=== PATIENT | female | born 1955 | race Caucasian/White ===

== ENCOUNTER → 2020-01-09 09:50 | Outpatient (BNVA) | payer OTHER, SELFPAY | PROVIDERS: PCP Internal Medicine; Referring Provider Internal Medicine; Visit Provider Physician Assistant | DX: Z76.89 Persons encountering health services in other specified circumstances (principal) ==

== ENCOUNTER 2020-02-01 16:02 | Outpatient (REF) | payer MEDICARE, OTHER, SELFPAY ==
--- NOTE | 2020-02-01 | MM_ITS ---
EXAMINATION: MM SCREENING DIGITAL BREAST TOMOSYNTHESIS, BILATERAL CLINICAL INFORMATION: Screening. Asymptomatic. The lifetime risk of breast cancer based on the Tyrer-Cuzick Model is 5.7%. COMPARISON: Mammography: August 08, 2018 and studies dating back to February 29, 2012 TECHNIQUE: Digital breast tomosynthesis is performed in both the craniocaudal and mediolateral oblique views along with computer-aided detection (CAD). Synthesized 2D images are generated from the tomosynthesis. FINDINGS: The breasts are heterogeneously dense, which may obscure small masses (ACR BI-RADS breast composition Category c). There are no significant masses, abnormal calcifications, or other abnormalities. MM/MM tomosynthesis screening BI IMPRESSION: There are no significant changes from prior study. ASSESSMENT: BI-RADS 1: Negative RECOMMENDATION: Routine annual mammography screening. This patient's information was entered into a reminder system with a target due date for their next mammogram.
== END 2020-02-01 16:03 | disposition home or self-care (01) ==
LOC: HO.MAMMO 16:02
PROVIDERS: Visit Provider Internal Medicine
DX: Z12.31 Encounter for screening mammogram for malignant neoplasm of breast (principal)
CPT/HCPCS: 77063; 77067

== ENCOUNTER 2020-03-04 09:11 | Day surgery (SDC) | payer MEDICARE, OTHER, SELFPAY ==
[2020-02-28 11:25] VITALS: BMI 29.2
--- NOTE | 2020-03-01 09:11 | P.CONAN_ITS ---
Documented by User: Ebony Luna 03/01/20 09:13 HPI - Anesthesia Eval Consult details Narrative: 64yo F for Colonoscopy FOR[facility]LY [facility] Past Medical History Medical History Encounter for screening colonoscopy HTN (hypertension) Family History Family History Father Hypertension Mother Hypertension Surgical History Surgical History History of esophagogastroduodenoscopy (EGD) Hx of colonoscopy Hx of hemorrhoidectomy Social History Social History Household Members: Spouse Housing: House Alcohol intake: current Alcohol intake frequency: holidays/special occasions only Alcohol type: wine Smoking Status: Former smoker Use of substances other than those prescribed or required for medical reasons: No Advance Directives: Yes Advance Directives Information Provided: No Advance Directives on File: No Advance Directives Date on File: 03/04/20 Recently lost weight without trying: No service: No Current occupational status: retired Current occupation: [employer] Meds Allergies Allergy/AdvReac Type Severity Reaction Status Date / Time No Known Allergies Allergy Verified 01/09/20 12:22 Home Medications Medication Instructions Recorded Confirmed Type metoprolol succinate 25 mg 25 mg PO DAILY 01/09/20 02/28/20 History tablet,extended release 24 hr Exam Exam Date and Time: March 01, 2020 0911 Height,Weight and Vital Signs: Height 5 ft 2 in Weight 72.575 kg Pertinent Lab Results Pertinent Lab Results: Laboratory Tests 09/28/19 09/28/19 08:21 08:21 WBC 4.0 L Hgb 12.7 Hct 38.4 Plt Count 184 Sodium 139 Potassium 3.9 Chloride 103 BUN 18 H Creatinine 0.78 Assessment and Plan Assessment Anesthesia Assessment: Chart Reviewed Documented by User: Shawnee Turpin 03/04/20 10:12 [facility] Past Medical History Medical History Encounter for screening colonoscopy HTN (hypertension) Family History Family History Father Hypertension Mother Hypertension Family history of problems with anesthesia: No Surgical History Surgical History History of esophagogastroduodenoscopy (EGD) Hx of colonoscopy Hx of hemorrhoidectomy History of Problems with Anesthesia: No Social History Social History Household Members: Spouse Housing: House Alcohol intake: current Alcohol intake frequency: holidays/special occasions only Alcohol type: wine Smoking Status: Former smoker Use of substances other than those prescribed or required for medical reasons: No Advance Directives: Yes Advance Directives Information Provided: No Advance Directives on File: No Advance Directives Date on File: 03/04/20 Recently lost weight without trying: No service: No Current occupational status: retired Current occupation: [employer] Meds Allergies Allergy/AdvReac Type Severity Reaction Status Date / Time No Known Allergies Allergy Verified 01/09/20 12:22 Home Medications Medication Instructions Recorded Confirmed Type metoprolol succinate 25 mg 25 mg PO DAILY 01/09/20 02/28/20 History tablet,extended release 24 hr Exam Height,Weight and Vital Signs: Vital Signs Temp Pulse Resp BP Pulse Ox 03/04/20 09:49 97.2 F 70 18 175/86 H 98 Airway Mallampati Class: I TM Dist: >3cm Neck ROM: Full Heart: RRR Lungs: CTAB Assessment and Plan Assessment Anesthesia Assessment: Anesthesia Plan Discussed and Chart Reviewed Final Anesthetic Review NPO: Yes ASA Class: II Final Preanesthetic Review: No Changes in Pt Med Stat, Meds/Allgs Chart Reviewed, Consent Obtained/Reviewed and Anes Risks/Benef Reviewed Patient Risk: Low Procedure Risk: Low Assessment/Block/Sedation in SS: Assess/Block/Sedation-SS Anesthetic Plan Anesthetic Plan: MAC: Disposition: Standard PACU
[2020-03-04 09:49] VITALS: BP 175/86; PULSE 70; RESP 18; TEMP 36.2; O2SAT 98; BMI 29.0
--- NOTE | 2020-03-04 10:25 | W.PM.OPN ---
Operative Note Operative Note Date of Service: 03/04/20 Narrative: Pre-op diagnosis: Colon cancer screening Post-op diagnosis: other (colon polyps, diverticulosis, hemorrhoids) Procedure: COLONOSCOPY TILL CECUM WITH BIOPSIES Consent: Indications for the procedure and potential complications of bleeding, perforation, reaction to medications and missed diagnosis were discussed with the patient and informed consent was obtained. Instrument: Olympus PCF H 190 L variable stiffness pediatric colonoscope Monitoring: Vital signs and clinical assessment, intermittent blood pressure monitoring, continuous EKG monitoring, Pulse oximetry and Carbon Dioxide monitoring were done throughout the procedure. Colon withdrawl time was 17 minutes. Procedure: The patient was placed in the left lateral decubitis position and pre-procedure medications were administered. After a digital rectal examination of the ano-rectum, the video colonoscope was inserted into the rectum and advanced through the colon to the cecum. The colonoscope was slowly withdrawn in a retrograde panoramic fashion and the colon mucosa was carefully examined including a retroflexed view of the rectum. Findings and interventions are described below. Procedure Difficulty: LLQ pressure applied to intubate the cecum Findings: Terminal Ileum: Not evaluated Cecum: Normal Ascending Colon: Normal Transverse Colon: Two 2-4 mm diminutive appearing polyps removed with a cold biopsy. Descending Colon: Normal Sigmoid Colon: Moderate diverticulosis Rectum: A 4-5 mm sessile polyp removed with a cold bx Ano-rectum: Moderate internal hemorrhoids Colon preparation: Excellent Impression and Post Procedure Diagnosis: Colonoscopy Findings: Three small polyps removed Moderate diverticulosis seen in the sigmoid colon Moderate hemorrhoids on retroflexed exam. Plan: Await pathology results Patient has an appointment on 03/18/20 in the GI Clinic with HARRY Ramesh. Repeat Colonoscopy interval based on path results - in 3-5 years if polyps are adenomatous and 10 years if polyps are hyperplastic. Above findings were reviewed with the patient and colon polyps and diverticulosis handouts were given in the discharge area Surgeon: Sosa Ordonez MD Anesthesia: MAC (VLADIMIR Rivera) Estimated blood loss (mL): 0 Pathology: other (A. TC polyps x 2, B. rectal polyp x 1) Condition: stable Disposition: PACU
--- NOTE | 2020-03-04 10:25 | MHC.SHP ---
Pre-Procedural Eval Section A The patient is an INPATIENT: No The History & Physical has been completed within 30 days and I have reviewed it.: No Section B Chief Complaint: Screening Details of Present Illness: a 64-year-old female referred for screening colonoscopy. Previous colonoscopy for normal by Dr.Wiess- kilgore in 2008. she was scheduled colonoscopy in August which she had canceled during the pandemic. past history of hemorrhoidectomy. she otherwise has no GI complaints. She has a good appetite. She has a normal bowel pattern Relevant Social History: Tobacco Use (past smoker) Present Medications: see Short Stay Collaborative assessment Medical History: Significant History (hypertension) History of Previous Operations: Relevant previous surgery/procedure and date(s) (colonoscopy in 2008) Allergies: Allergies Allergy/AdvReac Type Severity Reaction Status Date / Time No Known Allergies Allergy Verified 01/09/20 12:22 Review of Systems Sugical H&P ROS: Negative: Constitution, Cardiovascular, Respiratory and Gastrointestinal Exam Surgical H&P Exam: Normal: Heart, Normal: Lungs, Normal: Extremities and Normal: Abdomen Plan Diagnosis/Plan: Unchanged Patient has been examined and remains a candidate for the planned procedure
[2020-03-04] MEDS: Lactated Ringers 1,000 ML 100 ML IVCONT (10:26)
[2020-03-04 11:15] VITALS: BP 104/63; PULSE 60; RESP 15; TEMP 36.6; O2SAT 94
[2020-03-04 11:30] VITALS: BP 105/63; PULSE 63; RESP 16; O2SAT 96
[2020-03-04 11:45] VITALS: BP 112/73; PULSE 56; RESP 16; TEMP 36.6; O2SAT 96
--- NOTE | 2020-03-04 13:51 | HO.POSTANES ---
Post Anesthesia Evaluation Post Anesthesia Evaluation Vital Signs: Vital Signs Temp Pulse Resp BP Pulse Ox 03/04/20 11:45 97.8 F 56 16 112/73 96 03/04/20 11:30 63 16 105/63 96 03/04/20 11:15 97.8 F 60 15 104/63 94 03/04/20 09:49 97.2 F 70 18 175/86 H 98 Anesthesia: Monitored Mental Status: Awake Pain Control: Satisfactory Nausea/Vomiting: None Hydration: Adequate Anesthesia-Related Issues: No Anes. Related Issues
== END 2020-03-04 12:15 | disposition home or self-care (01) ==
PROVIDERS: PCP Internal Medicine; Visit Provider Internal Medicine Gastroenterology
PROC: 0DJD8ZZ Inspection of Lower Intestinal Tract, Via Natural or Artificial Opening Endoscopic (ICD-10-PCS; CPT 45378; principal; 2020-03-04 10:30)
DX: Z12.11 Encounter for screening for malignant neoplasm of colon (principal); D12.3 Benign neoplasm of transverse colon; K62.1 Rectal polyp; K57.30 Diverticulosis of large intestine without perforation or abscess without bleeding; K64.8 Other hemorrhoids
CPT/HCPCS: 45380; 88305

== ENCOUNTER → 2020-03-28 11:29 | Outpatient (BNVA) | payer MEDICARE, OTHER, SELFPAY | PROVIDERS: PCP Internal Medicine; Visit Provider Physician Assistant | DX: Z13.89 Encounter for screening for other disorder (principal) | CPT/HCPCS: 99212 ==

== ENCOUNTER 2020-04-03 07:59 | Outpatient (REF) | payer MEDICARE, OTHER, SELFPAY ==
[2020-04-03 11:55] LABS: Cholesterol 231 mg/dL; HDL Cholesterol 70 mg/dL; LDL Cholesterol Calculated 140 mg/dl; Triglycerides 109 mg/dL
[2020-04-03 12:17] LABS: Vitamin D 25-OH Total 36.7 ng/mL (>30)
== END 2020-04-03 08:00 | disposition home or self-care (01) ==
LOC: HO.HMGCLDS 07:59
PROVIDERS: PCP Internal Medicine; Visit Provider Internal Medicine
DX: I10 Essential (primary) hypertension (principal); E78.5 Hyperlipidemia, unspecified; E55.9 Vitamin D deficiency, unspecified
CPT/HCPCS: 36415; 80061; 82306

== ENCOUNTER 2020-10-14 08:45 | Outpatient (REF) | payer MEDICARE, OTHER, SELFPAY ==
[2020-10-14 11:49] LABS: Alanine Aminotransferase 16 U/L (0-31); Albumin Level 4.2 g/dL (3.5-5.0); Alkaline Phosphatase 63 U/L (39-117); Anion Gap 10 (12-20); Aspartate Amino Transferase 24 U/L (5-31); Bilirubin Total 0.7 mg/dL (0.0-1.0); Blood Urea Nitrogen 13 mg/dL (9-16); Calcium 9.4 mg/dL (8.4-10.2); Carbon Dioxide 27 mmol/L (22-29); Chloride 107 mmol/L (96-108); Cholesterol 207 mg/dL; Estimated Glomerular Filt Rate > 60; Glucose Fasting 91 mg/dL (60-99); HDL Cholesterol 64 mg/dL; LDL Cholesterol Calculated 121 mg/dl; Potassium 3.8 mmol/L (3.3-5.1); Sodium 140 mmol/L (135-145); Total Protein 6.4 g/dL (6.5-8.0); Triglycerides 111 mg/dL
[2020-10-14 12:11] LABS: TSH reflex Free T4 1.73 uIU/mL (0.32-4.0)
== END 2020-10-14 08:46 | disposition home or self-care (01) ==
LOC: HO.HMGCLDS 08:45
PROVIDERS: PCP Internal Medicine; Visit Provider Internal Medicine
DX: E78.5 Hyperlipidemia, unspecified (principal); I10 Essential (primary) hypertension
CPT/HCPCS: 36415; 80053; 80061; 82306; 84443

== ENCOUNTER 2021-02-04 11:56 | Outpatient (REF) | payer MEDICARE, OTHER, SELFPAY ==
--- NOTE | ~2021-02-04 | MM_ITS ---
EXAMINATION: MM SCREENING DIGITAL BREAST TOMOSYNTHESIS, BILATERAL CLINICAL INFORMATION: Screening. Asymptomatic. The lifetime risk of breast cancer based on the Tyrer-Cuzick Model is 5%. COMPARISON: Mammography: 02/01/2020, 08/08/2018, 07/20/2017 TECHNIQUE: Digital breast tomosynthesis is performed in both the craniocaudal and mediolateral oblique views along with computer-aided detection (CAD). Synthesized 2D images are generated from the tomosynthesis. FINDINGS: The breasts are heterogeneously dense, which may obscure small masses (ACR BI-RADS breast composition Category c). There are no significant masses, abnormal calcifications, or other abnormalities. Breast tissue composition borders on average fibroglandular. Parenchymal pattern similar to prior studies. MM/MM tomosynthesis screening BI IMPRESSION: No mammographic evidence of malignancy. ASSESSMENT: BI-RADS 1: Negative RECOMMENDATION: Routine annual mammography screening. This patient's information was entered into a reminder system with a target due date for their next mammogram.
== END 2021-02-04 11:57 | disposition home or self-care (01) ==
LOC: HO.MAMMO 11:56
PROVIDERS: PCP Internal Medicine; Visit Provider Internal Medicine
DX: Z12.31 Encounter for screening mammogram for malignant neoplasm of breast (principal)
CPT/HCPCS: 77063; 77067

== ENCOUNTER 2021-04-29 08:46 | Outpatient (REF) | payer MEDICARE, OTHER, SELFPAY ==
[2021-04-29 11:41] LABS: Hematocrit 39.5 % (37.0-47.0); Hemoglobin 13.3 g/dl (12.0-16.0); Mean Corpuscular HGB Conc 33.7 g/dl (31.0-35.0); Mean Corpuscular Volume 89.2 fL (80.0-98.0); Mean Platelet Volume 10.9 fL (9.4-12.3); Platelet Count 185 X10*3/uL (160-400); Red Blood Count 4.43 X10*6/uL (4.20-5.50); Red Cell Distribution Width 11.7 % (11.0-16.0); White Blood Count 4.3 X10*3/uL (4.8-10.8)
[2021-04-29 12:08] LABS: Vitamin D 25-OH Total 39.7 ng/mL (>30)
[2021-04-29 12:09] LABS: Alanine Aminotransferase 13 U/L (0-31); Albumin Level 4.5 g/dL (3.5-5.0); Alkaline Phosphatase 67 U/L (39-117); Anion Gap 11 (12-20); Aspartate Amino Transferase 22 U/L (5-31); Bilirubin Total 0.7 mg/dL (0.0-1.0); Blood Urea Nitrogen 17 mg/dL (9-16); Calcium 9.7 mg/dL (8.4-10.2); Carbon Dioxide 29 mmol/L (22-29); Chloride 105 mmol/L (96-108); Cholesterol 246 mg/dL; Estimated Glomerular Filt Rate > 60; Glucose Fasting 91 mg/dL (60-99); HDL Cholesterol 74 mg/dL; LDL Cholesterol Calculated 157 mg/dl; Potassium 4.9 mmol/L (3.3-5.1); Sodium 140 mmol/L (135-145); Total Protein 6.9 g/dL (6.5-8.0); Triglycerides 79 mg/dL
== END 2021-04-29 08:47 | disposition home or self-care (01) ==
LOC: HO.HMGCLDS 08:46
PROVIDERS: Visit Provider Internal Medicine
DX: E78.5 Hyperlipidemia, unspecified (principal); I10 Essential (primary) hypertension
CPT/HCPCS: 36415; 80053; 80061; 82306; 85027

== ENCOUNTER 2021-10-28 07:38 | Outpatient (REF) | payer MEDICARE, OTHER, SELFPAY ==
[2021-10-28 11:50] LABS: Cholesterol 236 mg/dL; HDL Cholesterol 68 mg/dL; LDL Cholesterol Calculated 152 mg/dl; Triglycerides 83 mg/dL
== END 2021-10-28 07:39 | disposition home or self-care (01) ==
LOC: HO.HMGCLDS 07:38
PROVIDERS: PCP Internal Medicine; Visit Provider Internal Medicine
DX: I10 Essential (primary) hypertension (principal); E78.5 Hyperlipidemia, unspecified
CPT/HCPCS: 36415; 80061

== ENCOUNTER 2022-01-06 07:49 | Outpatient (REF) | payer MEDICARE, OTHER, SELFPAY ==
[2022-01-06 12:02] LABS: Alanine Aminotransferase 13 U/L (0-31); Albumin Level 4.3 g/dL (3.5-5.0); Alkaline Phosphatase 59 U/L (39-117); Anion Gap 15 (12-20); Aspartate Amino Transferase 21 U/L (5-31); Bilirubin Total 0.7 mg/dL (0.0-1.0); Blood Urea Nitrogen 14 mg/dL (9-16); Calcium 9.1 mg/dL (8.4-10.2); Carbon Dioxide 27 mmol/L (22-29); Chloride 103 mmol/L (96-108); Cholesterol 184 mg/dL; Estimated Glomerular Filt Rate > 60; Glucose Fasting 86 mg/dL (60-99); HDL Cholesterol 58 mg/dL; LDL Cholesterol Calculated 110 mg/dl; Potassium 4.2 mmol/L (3.3-5.1); Sodium 141 mmol/L (135-145); Total Protein 6.6 g/dL (6.5-8.0); Triglycerides 82 mg/dL
== END 2022-01-06 07:50 | disposition home or self-care (01) ==
LOC: HO.HMGCLDS 07:49
PROVIDERS: PCP Internal Medicine; Visit Provider Internal Medicine
DX: E78.5 Hyperlipidemia, unspecified (principal); I10 Essential (primary) hypertension
CPT/HCPCS: 36415; 80053; 80061

== ENCOUNTER 2022-02-05 13:45 | Outpatient (REF) | payer MEDICARE, OTHER, SELFPAY ==
--- NOTE | ~2022-02-05 | MM_ITS ---
EXAMINATION: MM SCREENING DIGITAL BREAST TOMOSYNTHESIS, BILATERAL CLINICAL INFORMATION: Screening. Asymptomatic. The lifetime risk of breast cancer based on the Tyrer-Cuzick Model is 5.6%. COMPARISON: Mammography: February 04, 2021 and studies dating back to June 28, 2015 TECHNIQUE: Digital breast tomosynthesis is performed in both the craniocaudal and mediolateral oblique views along with computer-aided detection (CAD). Synthesized 2D images are generated from the tomosynthesis. FINDINGS: The breasts are heterogeneously dense, which may obscure small masses (ACR BI-RADS breast composition Category c). There are no significant masses, abnormal calcifications, or other abnormalities. MM/MM tomosynthesis screening BI IMPRESSION: No significant changes from prior exam. ASSESSMENT: BI-RADS 1: Negative RECOMMENDATION: Routine annual mammography screening. This patient's information was entered into a reminder system with a target due date for their next mammogram.
== END 2022-02-05 13:46 | disposition home or self-care (01) ==
LOC: HO.MAMMO 13:45
PROVIDERS: PCP Internal Medicine; Visit Provider Internal Medicine
DX: Z12.31 Encounter for screening mammogram for malignant neoplasm of breast (principal)
CPT/HCPCS: 77063; 77067

== ENCOUNTER 2022-06-12 08:52 | Outpatient (REF) | payer MEDICARE, OTHER, SELFPAY ==
[2022-06-12 11:17] LABS: MANUAL DIFF FLAG NO
[2022-06-12 11:24] LABS: Basophils Percent Auto 0.6 % (0-2); Eosinophils Absolute Auto 0.1 X10*3/uL (0.0-0.4); Hematocrit 37.9 % (37.0-47.0); Hemoglobin 12.6 g/dl (12.0-16.0); Lymphocytes Absolute Auto 1.7 X10*3/uL (1.2-4.9); Lymphocytes Percent Auto 46.9 % (20-40); Mean Corpuscular HGB Conc 33.2 g/dl (31.0-35.0); Mean Corpuscular Hemoglobin 29.9 pg (27.0-33.0); Mean Corpuscular Volume 89.8 fL (80.0-98.0); Mean Platelet Volume 10.5 fL (9.4-12.3); Monocytes Absolute Auto 0.3 X10*3/uL (0.1-1.2); Monocytes Percent Auto 7.5 % (2-11); Neutrophils Absolute Auto 1.5 x10*3/uL (2.0-8.3); Platelet Count 162 X10*3/uL (160-400); Red Blood Count 4.22 X10*6/uL (4.20-5.50); Red Cell Distribution Width 11.9 % (11.0-16.0); White Blood Count 3.6 X10*3/uL (4.8-10.8)
[2022-06-12 12:00] LABS: Alanine Aminotransferase 22 U/L (0-31); Albumin Level 4.2 g/dL (3.5-5.0); Alkaline Phosphatase 63 U/L (39-117); Anion Gap 10 (12-20); Aspartate Amino Transferase 29 U/L (5-31); Blood Urea Nitrogen 15 mg/dL (9-16); Calcium 9.2 mg/dL (8.4-10.2); Carbon Dioxide 28 mmol/L (22-29); Chloride 107 mmol/L (96-108); Cholesterol 205 mg/dL; Estimated Glomerular Filt Rate > 60; Glucose Fasting 91 mg/dL (60-99); HDL Cholesterol 77 mg/dL; LDL Cholesterol Calculated 115 mg/dl; Potassium 4.1 mmol/L (3.3-5.1); Sodium 141 mmol/L (135-145); TSH reflex Free T4 1.75 uIU/mL (0.32-4.0); Total Protein 6.3 g/dL (6.5-8.0); Triglycerides 67 mg/dL
== END 2022-06-12 08:53 | disposition home or self-care (01) ==
LOC: HO.HMGCLDS 08:52
PROVIDERS: PCP Internal Medicine; Visit Provider Internal Medicine
DX: E78.5 Hyperlipidemia, unspecified (principal); I10 Essential (primary) hypertension
CPT/HCPCS: 36415; 80053; 80061; 84443; 85025

== ENCOUNTER 2022-07-08 09:31 | Outpatient (REF) | payer MEDICARE, OTHER, SELFPAY ==
--- NOTE | ~2022-07-08 | MM_ITS ---
EXAMINATION: BONE DENSITOMETRY CLINICAL INDICATION: Asymptomatic menopausal state. COMPARISON: Baseline BD dated 07/20/2017. TECHNIQUE: Using a [employer] DXA System (software version: 13.1) manufactured by [employer], dual-energy x-ray absorptiometry was performed of the lumbar spine and left hip. The images are of good technical quality. Summary results are attached. FINDINGS: AP SPINE L1-L4: Current: BMD 1.025 g/cm2, Z-score 0.2, T-score -1.3, osteopenia, 9.2% decrease from baseline (<5% change is not significant). Baseline: BMD 1.129 g/cm2. LEFT FEMUR, NECK: Current: BMD 1.025 g/cm2, Z-score 1.4, T-score -0.1, normal. Baseline: BMD 1.078 g/cm2. LEFT FEMUR, TOTAL: Current: BMD 1.053 g/cm2, Z-score 1.6, T-score 0.4, normal, 2.7% decrease from baseline (<5% change is not significant). Baseline: BMD 1.082 g/cm2. IDENTIFIED RISK FACTORS: Menopause, history of fracture (adult). HISTORY OF FRACTURE: Other. MEDICATIONS: Vitamin D. MM/XR DEXA axial skeleton IMPRESSION: 1. DIAGNOSIS: Osteopenia based on the lowest T-score value of -1.3 in the lumbar spine applying World Health Organization criteria. 2. 10-YEAR FRACTURE RISK PREDICTION, FRAX: Major osteoporotic fracture (clinical spine, forearm, hip or shoulder) 11.5%. Hip fracture 0.5%. 3. Treatment Recommendations: NOF guidelines recommend consideration for treatment in postmenopausal women and men age 50 and older presenting with the following: -A hip or vertebral (clinical or morphometric) fracture. -T-score less than or equal to -2.5 at the femoral neck or spine after appropriate evaluation to exclude secondary causes. -Low bone mass at the hip or spine and a 10-year fracture probability by FRAX of greater than or equal to 3% for hip fracture or greater than or equal to 20% for major osteoporotic fracture based on the [place] adapted WHO algorithm. 4. Other Recommendations: All treatment decisions require clinical judgment and consideration of individual patient factors, including patient preferences, comorbidities, previous drug use, risk factors not captured in the FRAX model (e.g. frailty, falls, vitamin D deficiency, increased bone turnover, interval significant decline in bone density) and possible under or overestimation of fracture risk by FRAX. Additional medical evaluation for secondary cause of low bone mineral density may be appropriate. FUTURE SCAN RECOMMENDATION: People with diagnosed cases of osteoporosis or at high risk for fracture should have regular bone mineral density tests. For patients eligible for Medicare, routine testing is allowed once every 2 years. The testing frequency can be increased to one year for patients who have rapidly progressing disease, those who are receiving or discontinuing medical therapy to restore bone mass, or have additional risk factors.
== END 2022-07-08 09:32 | disposition home or self-care (01) ==
LOC: HO.MAMMO 09:31
PROVIDERS: PCP Internal Medicine; Visit Provider Internal Medicine
DX: Z13.820 Encounter for screening for osteoporosis (principal); Z78.0 Asymptomatic menopausal state
CPT/HCPCS: 77080

== ENCOUNTER 2022-09-28 10:46 | Outpatient (AMB) | payer MEDICARE, OTHER, SELFPAY ==
--- NOTE | 2022-09-28 10:58 | AM.OFFVISNUR ---
Intake Intake Visit Reasons: tdap Intake Note: Pt arrived for routine Tdap booster. She is traveling to [place] later this year, this booster is required. She called [facility], her secondary insurance, she was told they would cover this. 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
== END 2022-09-28 11:19 | disposition home or self-care (01) ==
LOC: HO.HMGC 10:46
PROVIDERS: PCP Internal Medicine; Visit Provider Internal Medicine
DX: Z23 Encounter for immunization (principal)
CPT/HCPCS: 90471; 90715

== ENCOUNTER 2022-12-11 07:43 | Outpatient (REF) | payer MEDICARE, OTHER, SELFPAY ==
[2022-12-11 11:19] LABS: MANUAL DIFF FLAG NO
[2022-12-11 11:59] LABS: Basophils Percent Auto 0.7 % (0-2); Eosinophils Absolute Auto 0.1 X10*3/uL (0.0-0.4); Eosinophils Percent Auto 2.8 % (0-4); Hematocrit 39.8 % (37.0-47.0); Hemoglobin 13.7 g/dl (12.0-16.0); Imm Gran Abs Auto 0.01 X10*3/uL (0.00-0.03); Imm Gran Pct Auto 0.2 % (0.0-0.4); Lymphocytes Absolute Auto 2.2 X10*3/uL (1.2-4.9); Lymphocytes Percent Auto 51.2 % (20-40); Mean Corpuscular HGB Conc 34.4 g/dl (31.0-35.0); Mean Corpuscular Hemoglobin 30.9 pg (27.0-33.0); Mean Corpuscular Volume 89.6 fL (80.0-98.0); Mean Platelet Volume 10.8 fL (9.4-12.3); Monocytes Absolute Auto 0.4 X10*3/uL (0.1-1.2); Monocytes Percent Auto 9.2 % (2-11); Neutrophils Absolute Auto 1.5 x10*3/uL (2.0-8.3); Neutrophils Percent Auto 35.9 % (45-73); Platelet Count 165 X10*3/uL (160-400); Red Blood Count 4.44 X10*6/uL (4.20-5.50); Red Cell Distribution Width 11.8 % (11.0-16.0); White Blood Count 4.2 X10*3/uL (4.8-10.8)
[2022-12-11 12:15] LABS: Alanine Aminotransferase 18 U/L (0-31); Albumin Level 4.4 g/dL (3.5-5.0); Alkaline Phosphatase 73 U/L (39-117); Anion Gap 11 (12-20); Aspartate Amino Transferase 24 U/L (5-31); Bilirubin Total 0.5 mg/dL (0.0-1.0); Blood Urea Nitrogen 17 mg/dL (9-16); Calcium 9.4 mg/dL (8.4-10.2); Carbon Dioxide 28 mmol/L (22-29); Chloride 106 mmol/L (96-108); Cholesterol 190 mg/dL (<200); Estimated Glomerular Filt Rate > 60; Glucose Fasting 87 mg/dL (60-99); HDL Cholesterol 70 mg/dL (>40); LDL Cholesterol Calculated 108 mg/dL (<100); Sodium 141 mmol/L (135-145); Total Protein 6.9 g/dL (6.5-8.0); Triglycerides 60 mg/dL (<150)
[2022-12-11 12:19] LABS: Vitamin D 25-OH Total 60.8 ng/mL (>30)
[2022-12-11 12:46] LABS: Folate 10.8 ng/mL (> or = 4.0); Vitamin B12 343 pg/mL (200-900)
== END 2022-12-11 07:44 | disposition home or self-care (01) ==
LOC: HO.HMGCLDS 07:43
PROVIDERS: PCP Internal Medicine; Visit Provider Internal Medicine
DX: Z00.00 Encounter for general adult medical examination without abnormal findings (principal); I10 Essential (primary) hypertension
CPT/HCPCS: 36415; 80053; 80061; 82306; 82607; 82746; 85025

== ENCOUNTER 2022-12-21 08:38 | Outpatient (AMB) | payer MEDICARE, OTHER, SELFPAY ==
--- NOTE | 2022-12-21 08:42 | MHC.PC.OV ---
Vital Signs 12/21/22 08:43 Height 5 ft 2 in Weight 157 lb BMI 28.7 BP 130/82 Blood Pressure Location Lt brachial Position Sitting Pulse 69 Pulse Source Pulse Oximeter Pulse Oximetry (%) 97 Oxygen Delivery Method Room Air Intake Visit Reasons: 6 month follow up HTN Intake Note: Pt is here today for 6 months follow up visit on HTN. Allergies No Known Allergies Allergy (Verified 12/21/22 08:44) Medication List - Last Reconciled 12/21/22 by Saray Oreilly MD flu vacc [id number](65yr up)-PF mL IM irbesartan 150 mg PO DAILY metoprolol succinate ER 25 mg PO DAILY pravastatin 20 mg PO DAILY Tobacco use date assessed: 12/21/22 Dental Screening Dental Screen Date: 12/21/22 Did you have a dental visit in the last 12 months?: Yes Did you have a dental problem in the last 6 months where you did not have access to dental care?: No Was dental information given to patient?: Patient has dentist HPI 6 month follow up HTN HPI Details Pt presents for HTN and hyperlipid, stable on meds. Patient is going on safari trip to [facility] Medical History (Updated 12/21/22 @ 09:27 by Saray Oreilly MD) Annual physical exam Normal breast exam Hyperlipidemia Hemorrhoids HTN (hypertension) Surgical History History of esophagogastroduodenoscopy (EGD) Hx of hemorrhoidectomy Family History Father Hypertension Mother Hypertension Social History Household Members: Spouse Housing: House Alcohol intake: current Alcohol intake frequency: holidays/special occasions only Alcohol type: wine Patient Tobacco Use Status: Former Tobacco user e-Cigarette/Vaping Use: Never Used Advance Directives Date on File: 03/04/20 service: No Current occupational status: 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 Bernabe, Geraldo Tipton and colleagues, with an educational kristi from [employer]. Review of Systems Const All systems reviewed & are unremarkable except as noted in HPI and below Reports no additional complaints Eyes Reports no additional complaints ENT Reports no additional complaints Resp Reports no additional complaints GI Reports no additional complaints Reports no additional complaints Physical exam (Primary Care) Vital Signs: Last Vital Signs Pulse 69 12/21/22 08:43 BP 130/82 12/21/22 08:43 Pulse Ox 97 12/21/22 08:43 Oxygen Delivery Method Room Air 12/21/22 08:43 BMI result Body Mass Index 28.7 Tobacco/Smoking Status: Tobacco use Status Tobacco use date assessed 12/21/22 12/21/22 08:47 Patient Tobacco Use Status Former Tobacco user 12/21/22 08:47 e-Cigarette/Vaping Use Never Used 12/21/22 08:47 Thrive Assessment: Date of Thrive Assessment Date Thrive assessed 06/24/22 12/21/22 08:47 Const General: no acute distress Eyes General: appearance normal, both eyes and all related structures Neck Neck: Yes supple Resp Effort & Inspection: normal respiratory effort Auscultation: clear to auscultation bilaterally Cardio Rhythm: regular rhythm Heart sounds: S1 normal heart sound present and S2 normal heart sound present Assessment and Plan Assessment & Plan (1) Tubular adenoma: Comment: Repeat polyp surveillance colonoscopy 5 years 2024 Code(s): D36.9 - Benign neoplasm, unspecified site (2) Hyperlipidemia: Code(s): E78.5 - Hyperlipidemia, unspecified Plan: Continue statin (3) HTN (hypertension): Code(s): I10 - Essential (primary) hypertension Plan: Continue current medication, return for physical in March with a fasting labs before (4) Annual physical exam: Code(s): Z00.00 - Encounter for general adult medical examination without abnormal findings (5) Dysplastic nevi: Code(s): D23.9 - Other benign neoplasm of skin, unspecified Plan: Referred to dermatology Orders: Orders Complete Blood Count Auto Diff 3 Months D36.9 - Benign neoplasm, unspecified site, E78.5 - Hyperlipidemia, unspecified, I10 - Essential (primary) hypertension Comprehensive [place]. Panel Fast 3 Months D36.9 - Benign neoplasm, unspecified site, E78.5 - Hyperlipidemia, unspecified, I10 - Essential (primary) hypertension Lipid Panel 3 Months D36.9 - Benign neoplasm, unspecified site, E78.5 - Hyperlipidemia, unspecified, I10 - Essential (primary) hypertension Referrals Dermatology Referral D23.9 - Other benign neoplasm of skin, unspecified Coding Level of Care Code Est Pt Level 4 (07329) Diagnoses Tubular adenoma D36.9 Hyperlipidemia E78.5 HTN (hypertension) I10 Annual physical exam Z00.00 Dysplastic nevi D23.9
[2022-12-21 08:43] VITALS: BP 130/82; PULSE 69; O2SAT 97; BMI 28.7
== END 2022-12-21 09:34 | disposition home or self-care (01) ==
PROVIDERS: Visit Provider Internal Medicine
DX: D36.9 Benign neoplasm, unspecified site (principal); E78.5 Hyperlipidemia, unspecified; I10 Essential (primary) hypertension; Z00.00 Encounter for general adult medical examination without abnormal findings; D23.9 Other benign neoplasm of skin, unspecified
CPT/HCPCS: 99214

== ENCOUNTER 2023-02-25 09:07 | Outpatient (REF) | payer MEDICARE, OTHER, SELFPAY ==
--- NOTE | ~2023-02-25 | MM_ITS ---
EXAMINATION: MM SCREENING DIGITAL BREAST TOMOSYNTHESIS, BILATERAL CLINICAL INFORMATION: Screening. Asymptomatic. COMPARISON: Mammography: 02/05/2022, 02/04/2021, 02/01/2020, 08/08/2018, 07/20/2017 TECHNIQUE: Digital breast tomosynthesis is performed in both the craniocaudal and mediolateral oblique views along with computer-aided detection (CAD). Synthesized 2D images are generated from the tomosynthesis. FINDINGS: The breasts are heterogeneously dense, which may obscure small masses (ACR BI-RADS breast composition Category c). There are no suspicious masses, suspicious grouped calcifications, or areas of architectural distortion in either breast. There are a few scattered punctate benign-appearing calcifications in the anterior bilateral breasts unchanged. The parenchymal pattern is stable from prior exams. No axillary or skin changes. MM/MM tomosynthesis screening BI IMPRESSION: No mammographic evidence of malignancy. ASSESSMENT: BI-RADS BI-RADS 2 - Benign Findings RECOMMENDATION: Routine annual mammography screening. 1 year F/U This examination should not preclude the clinical evaluation of a suspicious palpable abnormality. This patient's information was entered into a reminder system with a target due date for their next mammogram.
== END 2023-02-25 09:08 | disposition home or self-care (01) ==
LOC: HO.MAMMO 09:07
PROVIDERS: PCP Internal Medicine; Visit Provider Internal Medicine
DX: Z12.31 Encounter for screening mammogram for malignant neoplasm of breast (principal)
CPT/HCPCS: 77063; 77067

== ENCOUNTER → 2023-02-25 09:15 | Outpatient (BNV) | payer MEDICARE, OTHER, SELFPAY | PROVIDERS: PCP Internal Medicine; Visit Provider Radiology Diagnostic Radiology | DX: Z12.31 Encounter for screening mammogram for malignant neoplasm of breast (principal) | CPT/HCPCS: 77063; 77067 ==

== ENCOUNTER 2023-06-22 08:08 | Outpatient (REF) | payer MEDICARE, OTHER, SELFPAY ==
[2023-06-22 12:46] LABS: MANUAL DIFF FLAG NO
[2023-06-22 12:50] LABS: Basophils Percent Auto 0.5 % (0-2); Eosinophils Absolute Auto 0.1 X10*3/uL (0.0-0.4); Eosinophils Percent Auto 2.1 % (0-4); Hematocrit 38.7 % (37.0-47.0); Hemoglobin 12.9 g/dl (12.0-16.0); Lymphocytes Absolute Auto 2.4 X10*3/uL (1.2-4.9); Lymphocytes Percent Auto 54.5 % (20-40); Mean Corpuscular HGB Conc 33.3 g/dl (31.0-35.0); Mean Corpuscular Hemoglobin 29.6 pg (27.0-33.0); Mean Corpuscular Volume 88.8 fL (80.0-98.0); Mean Platelet Volume 10.3 fL (9.4-12.3); Monocytes Absolute Auto 0.3 X10*3/uL (0.1-1.2); Monocytes Percent Auto 6.9 % (2-11); Neutrophils Absolute Auto 1.6 x10*3/uL (2.0-8.3); Platelet Count 203 X10*3/uL (160-400); Red Blood Count 4.36 X10*6/uL (4.20-5.50); Red Cell Distribution Width 11.3 % (11.0-16.0); White Blood Count 4.4 X10*3/uL (4.8-10.8)
[2023-06-22 13:18] LABS: Alanine Aminotransferase 18 U/L (0-31); Albumin Level 4.2 g/dL (3.5-5.0); Alkaline Phosphatase 58 U/L (39-117); Anion Gap 10 (12-20); Aspartate Amino Transferase 23 U/L (5-31); Bilirubin Total 0.7 mg/dL (0.0-1.0); Blood Urea Nitrogen 17 mg/dL (9-16); Calcium 9.2 mg/dL (8.4-10.2); Carbon Dioxide 28 mmol/L (22-29); Chloride 106 mmol/L (96-108); Cholesterol 193 mg/dL (<200); Estimated Glomerular Filt Rate > 60; Glucose Fasting 86 mg/dL (60-99); HDL Cholesterol 67 mg/dL (>40); LDL Cholesterol Calculated 112 mg/dL (<100); Potassium 3.8 mmol/L (3.3-5.1); Sodium 140 mmol/L (135-145); Triglycerides 73 mg/dL (<150)
== END 2023-06-22 08:09 | disposition home or self-care (01) ==
LOC: HO.HMGCLDS 08:08
PROVIDERS: PCP Internal Medicine; Visit Provider Internal Medicine
DX: E78.5 Hyperlipidemia, unspecified (principal); I10 Essential (primary) hypertension; D36.9 Benign neoplasm, unspecified site
CPT/HCPCS: 36415; 80053; 80061; 85025

== ENCOUNTER 2023-06-28 12:52 | Outpatient (AMB) | payer MEDICARE, OTHER, SELFPAY ==
--- NOTE | 2023-06-28 13:02 | MHC.PC.OV ---
Vital Signs 06/28/23 13:06 Height 5 ft 2 in Weight 159 lb BMI 29.1 BP 124/80 Blood Pressure Location Rt brachial Position Sitting Pulse 73 Pulse Source Pulse Oximeter Pulse Oximetry (%) 98 Oxygen Delivery Method Room Air Intake Visit Reasons: Physical exam/secondary covers Intake Note: Pt is here today for her PE Allergies No Known Allergies Allergy (Verified 06/28/23 13:02) Tobacco use date assessed: 06/28/23 Fall risk assessment: No Falls in past year Last assessed Fall Risk: 06/28/23 Dental Screening Dental Screen Date: 06/28/23 Did you have a dental visit in the last 12 months?: Yes Did you have a dental problem in the last 6 months where you did not have access to dental care?: No Was dental information given to patient?: Patient has dentist HPI Physical exam/secondary covers HPI Details Patient presents for physical. [facility]LY [facility], [facility] Medical History Annual physical exam Normal breast exam Hyperlipidemia Hemorrhoids HTN (hypertension) Surgical History History of esophagogastroduodenoscopy (EGD) Hx of hemorrhoidectomy Family History Father Hypertension Mother Hypertension Social History Household Members: Spouse Housing: House Alcohol intake: current Alcohol intake frequency: holidays/special occasions only Alcohol type: wine Patient Tobacco Use Status: Former Tobacco user e-Cigarette/Vaping Use: Never Used Advance Directives Date on File: 03/04/20 service: No Current occupational status: retired 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 1. Little interest or pleasure in doing things: not at all 2. Feeling down, depressed, or hopeless: not at all 3. Trouble falling or staying asleep, or sleeping too much: not at all 4. Feeling tired or having little energy: several days 5. Poor appetite or overeating: not at all 6. Feeling bad about yourself - or that you are a failure or have let yourself or your family down: not at all 7. Trouble concentrating on things, such as reading the newspaper or watching television: not at all 8. Moving or speaking so slowly that other people could have noticed. Or the opposite - being so fidgety or restless that you have been moving around a lot more than usual: not at all 9. Thoughts that you would be better off or of hurting yourself in some way: not at all Total score: 1 Depression Screening Interpretation: Negative Depression Screening Done: Yes Source: Developed by Drs. Abdirahman Domingo, Carol Ann Kidd, Geraldo Tipton and colleagues, with an educational kristi from [employer]. Thrive Questionnaire Date Thrive assessed: 06/28/23 I am a: Patient What is your living situation today?: I have a steady place to live Within the past 12 months, did the food you bought not last and you didn't have the money to get more?: Never true Within the past 12 months, did you worry whether your food would run out before you got money to buy more?: Never true Do you have trouble paying for medicines?: No Do you have trouble getting transportation to medical appointments?: No Do you have trouble paying your heating and electricity bill?: No Do you have trouble taking care of your child, family member or friend?: No Do you have trouble with day-to-day activities such as bathing, preparing meals, shopping, managing finances, etc.?: No Are you currently unemployed and looking for a job?: No THRIVE Score: 0 AUDIT C Alcohol Use Questionnaire (AUDIT-C) 1. How often do you have a drink containing alcohol?: 2-4 times a month 2. How many drinks containing alcohol do you have on a typical day when you are drinking?: 1 or 2 3. How often do you have six or more drinks on one occasion?: Never Total Score: 2 JOSÉ LUIS-7 AMB Questionnaire JOSÉ LUIS-7 Date JOSÉ LUIS - 7 assessed: 06/24/22 Feeling nervous, anxious, or on edge: 0 = Not at all Not being able to stop or control worryin = Not at all Worrying too much about different things: 0 = Not at all Trouble relaxin = Not at all Being so restless that it is hard to sit still: 0 = Not at all Becoming easily annoyed or irritable: 1 = Several days Feeling afraid as if something awful might happen: 0 = Not at all Total JOSÉ LUIS-7 score (0-4 normal; 5-9 mild; 10-14 moderate; 15-21 severe): 1 Source: Developed by Drs. Abdirahman Domingo, Carol Ann Kidd, Geraldo Tipton and colleagues, with an educational kristi from [employer]. Review of Systems Const All systems reviewed & are unremarkable except as noted in HPI and below Reports no additional complaints Eyes Reports no additional complaints ENT Reports no additional complaints Card Reports no additional complaints Resp Reports no additional complaints GI Reports no additional complaints Reports no additional complaints Physical exam (Primary Care) Vital Signs: Last Vital Signs Pulse 73 06/28/23 13:06 BP 124/80 06/28/23 13:06 Pulse Ox 98 06/28/23 13:06 Oxygen Delivery Method Room Air 06/28/23 13:06 BMI result Body Mass Index 29.1 Tobacco/Smoking Status: Tobacco use Status Tobacco use date assessed 06/28/23 06/28/23 13:04 Patient Tobacco Use Status Former Tobacco user 06/28/23 13:04 e-Cigarette/Vaping Use Never Used 06/28/23 13:04 PHQ-9: PHQ-9 Score PHQ-9: Total score 1 06/28/23 13:10 Depression Screening Interpretation: Negative Thrive Assessment: Date of Thrive Assessment Date Thrive assessed 06/28/23 06/28/23 13:10 Const General: no acute distress HENMT Head: Yes normal to inspection Ears: hearing grossly normal bilaterally Face and sinus: Yes normal facial exam Eyes General: appearance normal, both eyes and all related structures Neck Neck: Yes no lymphadenopathy and Yes supple Resp Effort & Inspection: normal respiratory effort Auscultation: clear to auscultation bilaterally Cardio Rhythm: regular rhythm Heart sounds: S1 normal heart sound present and S2 normal heart sound present GI Inspection: Yes normal to inspection Palpation (GI): Soft to palpation Percussion: Yes normal to percussion Auscultation: normal bowel sounds Assessment and Plan Assessment & Plan (1) Annual physical exam: Code(s): Z00.00 - Encounter for general adult medical examination without abnormal findings Plan: Well-balanced diet regular physical activity discussed with the patient (2) HTN (hypertension): Code(s): I10 - Essential (primary) hypertension Plan: Continue current medications (3) Hyperlipidemia: Code(s): E78.5 - Hyperlipidemia, unspecified Plan: Continue statin (4) Tubular adenoma: Comment: Repeat polyp surveillance colonoscopy 5 years 12/2024 Code(s): D36.9 - Benign neoplasm, unspecified site Coding Level of Care Code Est Pt Prev Care >65y(86020) Diagnoses Annual physical exam Z00.00 HTN (hypertension) I10 Hyperlipidemia E78.5 Tubular adenoma D36.9
[2023-06-28 13:06] VITALS: BP 124/80; PULSE 73; O2SAT 98; BMI 29.1
== END 2023-06-28 14:21 | disposition home or self-care (01) ==
PROVIDERS: Visit Provider Internal Medicine
DX: Z00.00 Encounter for general adult medical examination without abnormal findings (principal); I10 Essential (primary) hypertension; E78.5 Hyperlipidemia, unspecified; D36.9 Benign neoplasm, unspecified site
CPT/HCPCS: 99397

== ENCOUNTER 2024-03-04 10:36 | Outpatient (REF) | payer MEDICARE, OTHER, SELFPAY | END 2024-03-04 10:37 | disposition home or self-care (01) | LOC: HO.MAMMO 10:36 | PROVIDERS: PCP Internal Medicine; Visit Provider Internal Medicine | DX: Z12.31 Encounter for screening mammogram for malignant neoplasm of breast (principal) | CPT/HCPCS: 77063; 77067 ==

== ENCOUNTER → 2024-03-04 10:45 | Outpatient (BNV) | payer MEDICARE, OTHER, SELFPAY | PROVIDERS: PCP Internal Medicine; Visit Provider Internal Medicine | DX: Z12.31 Encounter for screening mammogram for malignant neoplasm of breast (principal) | CPT/HCPCS: 77063; 77067 ==

== ENCOUNTER 2024-03-06 08:52 | Outpatient (AMB) | payer MEDICARE, OTHER, SELFPAY ==
--- NOTE | 2024-03-06 09:01 | AM.OFFVISNUR ---
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
== END 2024-03-06 09:06 | disposition home or self-care (01) ==
PROVIDERS: PCP Internal Medicine; Visit Provider Internal Medicine
DX: Z23 Encounter for immunization (principal)

== ENCOUNTER → 2024-03-06 08:52 | Outpatient (BNVA) | payer MEDICARE, OTHER, SELFPAY | PROVIDERS: PCP Internal Medicine; Visit Provider Internal Medicine | DX: Z23 Encounter for immunization (principal) | CPT/HCPCS: 90471; 90677 ==

== ENCOUNTER 2024-07-04 07:39 | Outpatient (REF) | payer MEDICARE, OTHER, SELFPAY ==
[2024-07-04 10:09] LABS: MANUAL DIFF FLAG NO
[2024-07-04 10:16] LABS: Basophils Percent Auto 0.9 % (0-2); Eosinophils Absolute Auto 0.1 X10*3/uL (0.0-0.4); Eosinophils Percent Auto 1.7 % (0-4); Hematocrit 38.6 % (37.0-47.0); Lymphocytes Absolute Auto 2.2 X10*3/uL (1.2-4.9); Lymphocytes Percent Auto 48.2 % (20-40); Mean Corpuscular HGB Conc 33.7 g/dl (31.0-35.0); Mean Corpuscular Hemoglobin 29.2 pg (27.0-33.0); Mean Corpuscular Volume 86.7 fL (80.0-98.0); Mean Platelet Volume 10.5 fL (9.4-12.3); Monocytes Absolute Auto 0.4 X10*3/uL (0.1-1.2); Monocytes Percent Auto 7.6 % (2-11); Neutrophils Absolute Auto 1.9 x10*3/uL (2.0-8.3); Neutrophils Percent Auto 41.6 % (45-73); Platelet Count 196 X10*3/uL (160-400); Red Blood Count 4.45 X10*6/uL (4.20-5.50); Red Cell Distribution Width 11.9 % (11.0-16.0); White Blood Count 4.6 X10*3/uL (4.8-10.8)
[2024-07-04 10:49] LABS: Alanine Aminotransferase 21 U/L (0-31); Albumin Level 4.2 g/dL (3.5-5.0); Alkaline Phosphatase 70 U/L (39-117); Anion Gap 8 (12-20); Aspartate Amino Transferase 30 U/L (5-31); Bilirubin Total 0.6 mg/dL (0.0-1.0); Blood Urea Nitrogen 13 mg/dL (9-16); Calcium 9.5 mg/dL (8.4-10.2); Carbon Dioxide 29 mmol/L (22-29); Chloride 107 mmol/L (96-108); Cholesterol 178 mg/dL (<200); Estimated Glomerular Filt Rate > 60; Glucose Fasting 89 mg/dL (60-99); HDL Cholesterol 69 mg/dL (>40); LDL Cholesterol Calculated 89 mg/dL (<100); Potassium 3.7 mmol/L (3.3-5.1); Sodium 140 mmol/L (135-145); TSH reflex Free T4 3.23 uIU/mL (0.32-4.0); Total Protein 6.6 g/dL (6.5-8.0); Triglycerides 100 mg/dL (<150); Vitamin D 25-OH Total 70.2 ng/mL (>30)
== END 2024-07-04 07:40 | disposition home or self-care (01) ==
LOC: HO.HMGCLDS 07:39
PROVIDERS: PCP Internal Medicine; Visit Provider Internal Medicine
DX: I10 Essential (primary) hypertension (principal); E78.5 Hyperlipidemia, unspecified
CPT/HCPCS: 36415; 80053; 80061; 82306; 84443; 85025

== ENCOUNTER 2024-07-18 12:47 | Outpatient (AMB) | payer MEDICARE, OTHER, SELFPAY ==
[2024-07-18 12:48] VITALS: BP 130/78; PULSE 85; RESP 18; TEMP 37; O2SAT 97; BMI 28.5
--- NOTE | 2024-07-18 12:48 | A.OFFPC_ITS ---
Vital Signs 07/18/24 12:48 Height 5 ft 2 in Weight 156 lb BMI 28.5 BP 130/78 Blood Pressure Location Lt brachial Position Sitting Respiration 18 Pulse 85 Pulse Source Pulse Oximeter Temp 98.6 F Temp Source Oral Pulse Oximetry (%) 97 Oxygen Delivery Method Room Air Intake Visit Reasons: Annual PE Intake Note: Pt is here today for PE. Allergies No Known Allergies Allergy (Verified 07/18/24 12:52) Medication List - Last Reconciled 07/18/24 by Saray Oreilly MD cholecalciferol (vitamin D3) 50 mcg PO DAILY estradiol 0.01%(0.1mg/gram) 1 g vaginal 3XW irbesartan 150 mg PO DAILY metoprolol succinate ER 25 mg PO DAILY pravastatin 20 mg PO DAILY Tobacco use date assessed: 07/18/24 Fall risk assessment: 1 Fall in past year Last assessed Fall Risk: 07/18/24 Dental Screening Dental Screen Date: 07/18/24 Did you have a dental visit in the last 12 months?: Yes Did you have a dental problem in the last 6 months where you did not have access to dental care?: No Was dental information given to patient?: Patient has dentist HPI Annual PE HPI Details Pt presents for PE. Patient complains of vaginal dryness and painful intercourse PFSH Medical History Annual physical exam Normal breast exam Hyperlipidemia Hemorrhoids HTN (hypertension) Surgical History History of esophagogastroduodenoscopy (EGD) Hx of hemorrhoidectomy Family History Father Hypertension Mother Hypertension Social History Household Members: Spouse Housing: House Alcohol intake: current Alcohol intake frequency: holidays/special occasions only Alcohol type: wine Patient Tobacco Use Status: Former Tobacco user e-Cigarette/Vaping Use: Never Used Advance Directives Date on File: 03/04/20 service: No Current occupational status: 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 1. Little interest or pleasure in doing things: not at all 2. Feeling down, depressed, or hopeless: not at all 3. Trouble falling or staying asleep, or sleeping too much: not at all 4. Feeling tired or having little energy: not at all 5. Poor appetite or overeating: not at all 6. Feeling bad about yourself - or that you are a failure or have let yourself or your family down: not at all 7. Trouble concentrating on things, such as reading the newspaper or watching television: not at all 8. Moving or speaking so slowly that other people could have noticed. Or the opposite - being so fidgety or restless that you have been moving around a lot more than usual: not at all 9. Thoughts that you would be better off or of hurting yourself in some way: not at all Total score: 0 Depression Screening Interpretation: Negative Depression Screening Done: Yes 76514 - PHQ-9 Billing: Yes Source: Developed by Drs. Abdirahman Domingo, Carol Ann Kidd, Geraldo Tipton and colleagues, with an educational kristi from [employer]. Thrive Questionnaire Date Thrive assessed: 07/18/24 I am a: Patient What is your living situation today?: I have a steady place to live Within the past 12 months, did the food you bought not last and you didn't have the money to get more?: Never true Within the past 12 months, did you worry whether your food would run out before you got money to buy more?: Never true Do you have trouble paying for medicines?: No Do you have trouble getting transportation to medical appointments?: No Do you have trouble paying your heating and electricity bill?: No Do you have trouble taking care of your child, family member or friend?: No Do you have trouble with day-to-day activities such as bathing, preparing meals, shopping, managing finances, etc.?: No Are you currently unemployed and looking for a job?: No Are you interested in more education?: No Please select the resources that you would like help with: None Currently or been in a relationship where the following occur: No concerns reported THRIVE Score: 0 AUDIT C Alcohol Use Questionnaire (AUDIT-C) 1. How often do you have a drink containing alcohol?: Monthly or less 2. How many drinks containing alcohol do you have on a typical day when you are drinking?: 1 or 2 3. How often do you have six or more drinks on one occasion?: Never Total Score: 1 JOSÉ LUIS-7 AMB Questionnaire JOSÉ LUIS-7 Date JOSÉ LUIS - 7 assessed: 07/18/24 Feeling nervous, anxious, or on edge: 0 = Not at all Not being able to stop or control worryin = Not at all Worrying too much about different things: 0 = Not at all Trouble relaxin = Not at all Being so restless that it is hard to sit still: 0 = Not at all Becoming easily annoyed or irritable: 0 = Not at all Feeling afraid as if something awful might happen: 0 = Not at all Total JOSÉ LUIS-7 score (0-4 normal; 5-9 mild; 10-14 moderate; 15-21 severe): 0 Source: Developed by Drs. Abdirahman Domingo, Carol Ann Kidd, Geraldo Tipton and colleagues, with an educational kristi from [employer]. JOSÉ LUIS-7 Assessment Billing JOSÉ LUIS-7 Assessment Tool: JOSÉ LUIS-7 Assessment 91222 Review of Systems Const All systems reviewed & are unremarkable except as noted in HPI and below Eyes Reports no additional complaints ENT Reports no additional complaints Card Reports no additional complaints Resp Reports no additional complaints GI Reports no additional complaints Reports no additional complaints Physical exam (Primary Care) Vital Signs: Last Vital Signs Temp 98.6 F 07/18/24 12:48 Pulse 85 07/18/24 12:48 Resp 18 07/18/24 12:48 BP 130/78 07/18/24 12:48 Pulse Ox 97 07/18/24 12:48 Oxygen Delivery Method Room Air 07/18/24 12:48 BMI result Body Mass Index 28.5 Tobacco/Smoking Status: Tobacco use Status Tobacco use date assessed 07/18/24 07/18/24 12:54 Patient Tobacco Use Status Former Tobacco user 07/18/24 12:49 e-Cigarette/Vaping Use Never Used 07/18/24 12:49 PHQ-9: PHQ-9 Score PHQ-9: Total score 0 07/18/24 12:54 Depression Screening Interpretation: Negative Thrive Assessment: Date of Thrive Assessment Date Thrive assessed 07/18/24 07/18/24 12:54 Currently or been in a relationship where the following occur: No concerns reported Const General: no acute distress HENMT Head: Yes normal to inspection Ears: hearing grossly normal bilaterally Face and sinus: Yes normal facial exam Mouth: Normal oral and palatal mucosa present Throat: Yes posterior oropharynx normal Eyes General: appearance normal, both eyes and all related structures Neck Neck: Yes no lymphadenopathy and Yes supple Resp Effort & Inspection: normal respiratory effort Auscultation: clear to auscultation bilaterally Cardio Rhythm: regular rhythm Heart sounds: S1 normal heart sound present and S2 normal heart sound present GI Inspection: Yes normal to inspection Palpation (GI): Soft to palpation Percussion: Yes normal to percussion Auscultation: normal bowel sounds Coding Level of Care Code Est Pt Prev Care >65y(04353) Diagnoses Annual physical exam Z00.00 Hyperlipidemia E78.5 HTN (hypertension) I10 Atrophic vaginitis N95.2 Additional Codes JOSÉ LUIS-7 Assessment Billing - JOSÉ LUIS-7 Assessment Tool: JOSÉ LUIS-7 Assessment 98260 ([id number]) PHQ-9 - 05364 - PHQ-9 Billing: Yes ([id number]) Assessment & Plan Assessment & Plan (1) Annual physical exam: Comment: February 2020 colonoscopy 1 polyp TA repeat in 5 yrs [facility] [place] Code(s): Z00.00 - Encounter for general adult medical examination without abnormal findings Category: Medical Plan: Well-balanced diet regular physical activity discussed with the patient she is up-to-date with the mammogram DEXA and and is due for repeat colonoscopy in February for history of colon polyp on last colonoscopy (2) Hyperlipidemia: Code(s): E78.5 - Hyperlipidemia, unspecified Category: Medical Plan: Continue pravastatin (3) HTN (hypertension): Code(s): I10 - Essential (primary) hypertension Category: Medical Plan: Blood pressure is elevated and metoprolol will be increased to 50 mg a day. Follow-up in 6 weeks (4) Atrophic vaginitis: Code(s): N95.2 - Postmenopausal atrophic vaginitis Category: Medical Plan: Try estradiol vaginal cream Medications: New estradiol 0.01%(0.1mg/gram) 1 g vaginal 3XW 42.5 grams 4RF
== END 2024-07-18 13:32 | disposition home or self-care (01) ==
LOC: HO.HMCC 12:48
PROVIDERS: PCP Internal Medicine; Visit Provider Internal Medicine
DX: Z00.00 Encounter for general adult medical examination without abnormal findings (principal); E78.5 Hyperlipidemia, unspecified; I10 Essential (primary) hypertension; N95.2 Postmenopausal atrophic vaginitis

== ENCOUNTER → 2024-07-18 12:47 | Outpatient (BNVA) | payer MEDICARE, OTHER, SELFPAY | PROVIDERS: PCP Internal Medicine; Visit Provider Internal Medicine | DX: Z00.00 Encounter for general adult medical examination without abnormal findings (principal); E78.5 Hyperlipidemia, unspecified; I10 Essential (primary) hypertension; N95.2 Postmenopausal atrophic vaginitis | CPT/HCPCS: 96127; 99397 ==

== ENCOUNTER 2024-08-23 12:47 | Outpatient (AMB) | payer MEDICARE, OTHER, SELFPAY ==
[2024-08-23 12:50] VITALS: BP 142/80; PULSE 83; RESP 18; TEMP 37; O2SAT 95; BMI 28.5
--- NOTE | 2024-08-23 12:50 | MHC.PC.OV ---
Vital Signs 08/23/24 12:50 Height 5 ft 2 in Weight 156 lb BMI 28.5 BP 142/80 H Blood Pressure Location Rt brachial Position Sitting Respiration 18 Pulse 83 Pulse Source Pulse Oximeter Temp 98.6 F Temp Source Oral Pulse Oximetry (%) 95 Oxygen Delivery Method Room Air Intake Visit Reasons: 5 weeks f/u Intake Note: Pt is here today for 5 weeks follow up visit on HTN. Allergies No Known Allergies Allergy (Verified 08/23/24 12:51) Medication List - Last Reconciled 08/23/24 by Saray Oreilly MD cholecalciferol (vitamin D3) 50 mcg PO DAILY estradiol 0.01%(0.1mg/gram) 1 g vaginal 3XW irbesartan 150 mg PO DAILY irbesartan 75 mg PO DAILY metoprolol succinate ER 25 mg PO BID pravastatin 20 mg PO DAILY Tobacco use date assessed: 07/18/24 Dental Screening Dental Screen Date: 07/18/24 HPI 5 weeks f/u HPI Details Pt presents for f/u HTN. She has been worrying about her health and elevated blood pressure. She has been checking blood pressure frequently at home and getting high readings at 140/90. Patient denies headaches chest pain shortness or breath. She exercise regularly at least 5 times a week lifting weights and doing cardio. [facility] Medical History Annual physical exam Normal breast exam Hyperlipidemia Hemorrhoids HTN (hypertension) Surgical History History of esophagogastroduodenoscopy (EGD) Hx of hemorrhoidectomy Family History Father Hypertension Mother Hypertension Social History Household Members: Spouse Housing: House Alcohol intake: current Alcohol intake frequency: holidays/special occasions only Alcohol type: wine Patient Tobacco Use Status: Former Tobacco user e-Cigarette/Vaping Use: Never Used Advance Directives Date on File: 03/04/20 service: No Current occupational status: retired 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 Cognitive needs: No Hearing needs: No Vision needs: Yes Questionnaire Thrive Questionnaire Date Thrive assessed: 07/13/24 I am a: Patient What is your living situation today?: I have a steady place to live Within the past 12 months, did the food you bought not last and you didn't have the money to get more?: Never true Within the past 12 months, did you worry whether your food would run out before you got money to buy more?: Never true Do you have trouble paying for medicines?: No Do you have trouble getting transportation to medical appointments?: No Do you have trouble paying your heating and electricity bill?: No Do you have trouble taking care of your child, family member or friend?: No Do you have trouble with day-to-day activities such as bathing, preparing meals, shopping, managing finances, etc.?: No Are you currently unemployed and looking for a job?: No Are you interested in more education?: No Please select the resources that you would like help with: None Currently or been in a relationship where the following occur: No concerns reported THRIVE Score: 0 JOSÉ LUIS-7 AMB Questionnaire JOSÉ LUIS-7 Date JOSÉ LUIS - 7 assessed: 07/18/24 Source: Developed by Drs. Abdirahman Domingo, Carol Ann Kidd, Geraldo Tipton and colleagues, with an educational kristi from [employer]. Review of Systems Const All systems reviewed & are unremarkable except as noted in HPI and below Eyes Reports no additional complaints ENT Reports no additional complaints Card Reports no additional complaints Resp Reports no additional complaints GI Reports no additional complaints Reports no additional complaints Physical exam (Primary Care) Vital Signs: Last Vital Signs Temp 98.6 F 08/23/24 12:50 Pulse 83 08/23/24 12:50 Resp 18 08/23/24 12:50 BP 142/80 H 08/23/24 12:50 Pulse Ox 95 08/23/24 12:50 Oxygen Delivery Method Room Air 08/23/24 12:50 BMI result Body Mass Index 28.5 Tobacco/Smoking Status: Tobacco use Status Tobacco use date assessed 07/18/24 08/23/24 12:53 Patient Tobacco Use Status Former Tobacco user 08/23/24 12:53 e-Cigarette/Vaping Use Never Used 08/23/24 12:53 Thrive Assessment: Date of Thrive Assessment Date Thrive assessed 07/13/24 08/23/24 12:53 Currently or been in a relationship where the following occur: No concerns reported Const General: no acute distress HENMT Head: Yes normal to inspection Neck Neck: Yes supple Resp Effort & Inspection: normal respiratory effort Auscultation: clear to auscultation bilaterally Cardio Rhythm: regular rhythm Heart sounds: S1 normal heart sound present and S2 normal heart sound present Coding Level of Care Code Est Pt Level 4 (21627) Diagnoses HTN (hypertension) I10 Anxiety F41.9 Hyperlipidemia E78.5 Assessment & Plan Assessment & Plan (1) HTN (hypertension): Code(s): I10 - Essential (primary) hypertension Category: Medical Plan: Continue 50 mg of metoprolol and add 75 mg of Irbesartan in the morning and continue 150 at night. Patient will follow-up in 1 month (2) Anxiety: Code(s): F41.9 - Anxiety disorder, unspecified Category: Medical Plan: Stress management mindfulness discussed with the patient. She declined taking medication sheet patient will try counseling (3) Hyperlipidemia: Code(s): E78.5 - Hyperlipidemia, unspecified Category: Medical Plan: Continue pravastatin Orders: Orders Basic Metabolic Panel 1 Week I10 - Essential (primary) hypertension Medications: New irbesartan take with 150 mg Irbesartan 75 mg PO DAILY 90 tabs 0RF Changed From metoprolol succinate ER 25 mg PO DAILY 90 tabs 3RF I10 - Essential (primary) hypertension To metoprolol succinate ER 25 mg PO BID I10 - Essential (primary) hypertension
--- OUTSIDE RECORDS SUMMARY | 2024-08-23 13:13 | XMS_ITS | Patient Health Record ---
Author Organization [facility] [place] Address [address] [place] [address] Care Team Providers Care [place] Supervisor Name Role Phone -Do Not use, PCP Primary Care Provider Unavailab le Reason For Referral No Information Medications Medication SIG (Take, Route, Frequency, Duration) Notes Start Date End Date Status Fluticasone Propionate 50 MCG/ACT 1 spray in each nostril Nasally Once a day for 30 day(s) 05/05/2019 Active Metoprolol Tartrate 25 MG Oral for 90 Active Irbesartan 150 MG Oral for 90 Active Plan Of Treatment No Information Insurance Providers Payer Name Payer Address Payer Phone Subscriber Number Group Number Insured Name Patient Relationship to Insured Coverage Start Date Coverage End Date [employer] of [place] [employer] [address] [place] [phone] [id number] Vale Truong Self - patient is the insured 9 [facility] [address] [place] [phone] [id number] Vale Truong Self - patient is the insured 0 Medical (General) History Medical History History ICD Code Hypertension I10 Surgical History Surgery Date(Month/Year) Hemorrhoids repair 2011 Hospitalization History Reason Date(Month/Year)
== END 2024-08-23 14:07 | disposition home or self-care (01) ==
LOC: HO.HMCC 12:48
PROVIDERS: PCP Internal Medicine; Visit Provider Internal Medicine
DX: I10 Essential (primary) hypertension (principal); F41.9 Anxiety disorder, unspecified; E78.5 Hyperlipidemia, unspecified

== ENCOUNTER → 2024-08-23 12:47 | Outpatient (BNVA) | payer MEDICARE, OTHER, SELFPAY | PROVIDERS: PCP Internal Medicine; Visit Provider Internal Medicine | DX: I10 Essential (primary) hypertension (principal); F41.9 Anxiety disorder, unspecified; E78.5 Hyperlipidemia, unspecified | CPT/HCPCS: 99212 ==

== ENCOUNTER 2024-09-18 12:58 | Outpatient (REF) | payer MEDICARE, OTHER, SELFPAY ==
--- OUTSIDE RECORDS SUMMARY | 2024-09-18 13:20 | XMS_ITS | Patient Health Record ---
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 Name Role Phone Saray Oreilly MD Primary Care Provider Abdirahman Mcconnell Unavailable [phone] Reason For Referral No Information Medications Medication SIG (Take, Route, Frequency, Duration) Notes Start Date End Date Status Diovan 160mg 03/22/2024 03/22/2024 Activ e Metoprolol & Diet Manage Prod 25mg Active Aspirin Childrens 81 MG 1 tablet Orally Once a day 03/22/2024 03/22/2024 Active Problems Problem Type SNOMED Code ICD Code Onset Dates Problem Status W/U Status Risk Notes Problem Epigastric pain (78643615) Abdominal pain, epigastric (789.06) Active confirmed Problem Hemorrhoids (455.6) Active confirmed Plan Of Treatment No Information Insurance Providers Payer Name Payer Address Payer Phone Subscriber Number Group Number Insured Name Patient Relationship to Insured Coverage Start Date Coverage End Date [facility] [address] [place] [phone] [id number] A[place] VEE Self - patient is the insured Medical (General) History Medical History History ICD Code colonoscopy 10-09-2008--neg except int/ex t hemorrhoids and diverticulosis EGD and colonoscopy 04-23-2003 -EGD with a small HH but otherwise negative, and colon was negative for polyps Denies PR,DM,CVA,Lung disease,renal dise ase HTN Liver cysts seen on U/S and CT scan in and 2003-no gallstones
--- OUTSIDE RECORDS SUMMARY | 2024-09-18 13:20 | XMS_ITS | Patient Health Record ---
Author Organization [facility] Address [address] [place] [address] Care Team Providers Care Manager Of Tires Sales Name Role Phone -Do Not use, PCP [...] [facility] [address] [place] [phone] [id number] Vale Truong Self - patient is the insured 9 [facility] [address] [place] [phone] [id number] Vale Truong Self - patient is the insured 0 Medical (General) History Medical History History ICD Code Hypertension I10 Surgical History Surgery Date(Month/Year) Hemorrhoids repair 2011 Hospitalization History Reason Date(Month/Year)
[2024-09-18 16:24] LABS: Anion Gap 11 (12-20); Blood Urea Nitrogen 16 mg/dL (9-16); Calcium 9.1 mg/dL (8.4-10.2); Carbon Dioxide 27 mmol/L (22-29); Chloride 105 mmol/L (96-108); Estimated Glomerular Filt Rate > 60; Glucose Random 130 mg/dL (60-115); Potassium 3.9 mmol/L (3.3-5.1); Sodium 139 mmol/L (135-145)
== END 2024-09-18 12:59 | disposition home or self-care (01) ==
LOC: HO.HMGCLDS 12:58
PROVIDERS: PCP Internal Medicine; Visit Provider Internal Medicine
DX: I10 Essential (primary) hypertension (principal)
CPT/HCPCS: 36415; 80048

== ENCOUNTER 2024-09-25 08:56 | Outpatient (AMB) | payer MEDICARE, OTHER, SELFPAY ==
--- NOTE | 2024-09-25 09:03 | MHC.PC.OV ---
Vital Signs 09/25/24 09:12 09/25/24 09:19 Height 5 ft 2 in Weight 159 lb BMI 29.1 BP 128/84 138/84 Blood Pressure Location Lt brachial Rt brachial Position Sitting Sitting Respiration 18 Pulse 71 Pulse Source Pulse Oximeter Temp 98.3 F Temp Source Oral Pulse Oximetry (%) 98 Oxygen Delivery Method Room Air Intake Visit Reasons: 1 month f/up Intake Note: Pt is here today for 1 month follow up visit. Allergies No Known Allergies Allergy (Verified 09/25/24 09:04) Medication List - Last Reconciled 09/25/24 by Saray Oreilly MD cholecalciferol (vitamin D3) 50 mcg PO DAILY estradiol 0.01%(0.1mg/gram) 1 g vaginal 3XW irbesartan 150 mg PO DAILY irbesartan 75 mg PO DAILY metoprolol succinate ER 25 mg PO BID pravastatin 20 mg PO DAILY Tobacco use date assessed: 09/25/24 Fall risk assessment: No Falls in past year Last assessed Fall Risk: 09/25/24 Dental Screening Dental Screen Date: 07/18/24 HPI 1 month f/up HPI Details Pt presents for f/u of HTN and hyperlipid. Patient has been tolerating additional dose of valsartan well. She continues to exercise regularly [facility] Medical History Annual physical exam Normal breast exam Hyperlipidemia Hemorrhoids HTN (hypertension) Surgical History History of esophagogastroduodenoscopy (EGD) Hx of hemorrhoidectomy Family History Father Hypertension Mother Hypertension Social History Household Members: Spouse Housing: House Alcohol intake: current Alcohol intake frequency: holidays/special occasions only Alcohol type: wine Patient Tobacco Use Status: Former Tobacco user e-Cigarette/Vaping Use: Never Used Advance Directives Date on File: 03/04/20 service: No Current occupational status: retired 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 Cognitive needs: No Hearing needs: No Vision needs: Yes Questionnaire Thrive Questionnaire Date Thrive assessed: 07/13/24 I am a: Patient What is your living situation today?: I have a steady place to live Within the past 12 months, did the food you bought not last and you didn't have the money to get more?: Never true Within the past 12 months, did you worry whether your food would run out before you got money to buy more?: Never true Do you have trouble paying for medicines?: No Do you have trouble getting transportation to medical appointments?: No Do you have trouble paying your heating and electricity bill?: No Do you have trouble taking care of your child, family member or friend?: No Do you have trouble with day-to-day activities such as bathing, preparing meals, shopping, managing finances, etc.?: No Are you currently unemployed and looking for a job?: No Are you interested in more education?: No Please select the resources that you would like help with: None Currently or been in a relationship where the following occur: No concerns reported THRIVE Score: 0 JOSÉ LUIS-7 AMB Questionnaire JOSÉ LUIS-7 Date JOSÉ LUIS - 7 assessed: 07/18/24 Source: Developed by Drs. Abdirahman Domingo, Carol Ann Kidd, Geraldo Tipton and colleagues, with an educational kristi from [employer]. Review of Systems Const All systems reviewed & are unremarkable except as noted in HPI and below Eyes Reports no additional complaints ENT Reports no additional complaints Card Reports no additional complaints Resp Reports no additional complaints GI Reports no additional complaints Reports no additional complaints Physical exam (Primary Care) Vital Signs: Last Vital Signs Temp 98.3 F 09/25/24 09:12 Pulse 71 09/25/24 09:12 Resp 18 09/25/24 09:12 BP 138/84 09/25/24 09:19 Pulse Ox 98 09/25/24 09:12 Oxygen Delivery Method Room Air 09/25/24 09:12 BMI result Body Mass Index 29.1 Tobacco/Smoking Status: Tobacco use Status Tobacco use date assessed 09/25/24 09/25/24 09:19 Patient Tobacco Use Status Former Tobacco user 09/25/24 09:06 e-Cigarette/Vaping Use Never Used 09/25/24 09:06 Thrive Assessment: Date of Thrive Assessment Date Thrive assessed 07/13/24 09/25/24 09:06 Currently or been in a relationship where the following occur: No concerns reported Const General: no acute distress HENMT Head: Yes normal to inspection Face and sinus: Yes normal facial exam Mouth: Normal oral and palatal mucosa present Eyes General: appearance normal, both eyes and all related structures Neck Neck: Yes no lymphadenopathy and Yes supple Resp Effort & Inspection: normal respiratory effort Auscultation: clear to auscultation bilaterally Cardio Rhythm: regular rhythm Heart sounds: S1 normal heart sound present and S2 normal heart sound present Coding Level of Care Code Est Pt Level 4 (46344) Diagnoses HTN (hypertension) I10 Hyperlipidemia E78.5 Assessment & Plan Assessment & Plan (1) HTN (hypertension): Code(s): I10 - Essential (primary) hypertension Category: Medical Plan: Continue current medication regular physical activity follow-up in 3 months with a fasting labs before (2) Hyperlipidemia: Code(s): E78.5 - Hyperlipidemia, unspecified Category: Medical Plan: Continue pravastatin Orders: Orders Hemoglobin A1c 3 Months E78.5 - Hyperlipidemia, unspecified, I10 - Essential (primary) hypertension Comprehensive [place]. Panel Fast 3 Months E78.5 - Hyperlipidemia, unspecified, I10 - Essential (primary) hypertension Lipid Panel 3 Months E78.5 - Hyperlipidemia, unspecified, I10 - Essential (primary) hypertension
[2024-09-25 09:12] VITALS: BP 128/84; PULSE 71; RESP 18; TEMP 36.8; O2SAT 98; BMI 29.1
--- OUTSIDE RECORDS SUMMARY | 2024-09-25 09:15 | XMS_ITS | Patient Health Record ---
Author Organization [facility] Address [address] [place] [address] Care Team Providers Care J2Ee Consultant Name Role Phone Saray Oreilly MD Primary Care Provider Abdirahman Mcconnell Unavailable [phone] Reason For Referral No Information Medications Medication SIG (Take, Route, Frequency, Duration) Notes Start Date End Date Status Diovan 160mg 03/22/2024 03/22/2024 Activ e Metoprolol & Diet Manage Prod 25mg Active Aspirin Childrens 81 MG 1 tablet Orally Once a day 03/22/2024 03/22/2024 Active Problems Problem Type SNOMED Code ICD Code Onset Dates Problem Status W/U Status Risk Notes Problem Epigastric pain (49464878) Abdominal pain, epigastric (789.06) Active confirmed Problem Hemorrhoids (455.6) Active confirmed Plan Of Treatment No Information Insurance Providers Payer Name Payer Address Payer Phone Subscriber Number Group Number Insured Name Patient Relationship to Insured Coverage Start Date Coverage End Date [facility] [address] [place] [phone] [id number] AFRICA VEE Self - patient is the insured Medical (General) History Medical History History ICD Code colonoscopy 10-09-2008--neg except int/ex t hemorrhoids and diverticulosis EGD and colonoscopy 04-23-2003 -EGD with a small HH but otherwise negative, and colon was negative for polyps Denies [place],DM,CVA,Lung disease,renal dise ase HTN Liver cysts seen on U/S and CT scan in and 2003-no gallstones
[2024-09-25 09:19] VITALS: BP 138/84
== END 2024-09-25 09:39 | disposition home or self-care (01) ==
LOC: HO.HMCC 08:57
PROVIDERS: PCP Internal Medicine; Visit Provider Internal Medicine
DX: I10 Essential (primary) hypertension (principal); E78.5 Hyperlipidemia, unspecified

== ENCOUNTER → 2024-09-25 08:56 | Outpatient (BNVA) | payer MEDICARE, OTHER, SELFPAY | PROVIDERS: PCP Internal Medicine; Visit Provider Internal Medicine | DX: I10 Essential (primary) hypertension (principal); E78.5 Hyperlipidemia, unspecified | CPT/HCPCS: 99212 ==

== ENCOUNTER 2024-12-11 07:38 | Outpatient (REF) | payer MEDICARE, OTHER, SELFPAY ==
--- OUTSIDE RECORDS SUMMARY | 2024-12-11 07:40 | XMS_ITS | Clinical Summary ---
Author Organization [facility] Address [address] [place] [address] Phone Care Team Providers Care Park Police Name Role Phone Saray Oreilly MD Primary Care Provider [phone] Medications atovaquone-prog uanil (MALARONE) 250-100 mg Tab Take 1 tablet by mouth daily. Start 2 days before entering malarial area, continue until 7 days after leaving malarial area. Take with food. 28 tablet 11/04/2022 Active Immunizations Immunization Administration Dates Next Due IPV 11/04/2022 Influenza High-Dose Quadriva lent Preservative Free IM 01/19/2022,12/22/2020,12/18/2019 Influenza High-Dose Trivalen t Preservative Free IM 12/29/2018 Influenza Quadrivalent w/ Preservative IM 2017,11/20/2016 Td (adult) 5 Lf Tetanus Toxo id, PF, Adsorbed 11/28/2012 Tdap 09/28/2022 Typhoid, ViCPs 11/04/2022 Zoster recombinant 11/01/2018,07/26/2018 Social History Tobacco Use Types Packs/Day Years Used Date Smoking Tobacco: Never Assessed Education Answer Date Recorded Are you interested in more education? Not on felipa e 10/19/2022 Are you concerned about learning? Not on file 10/19/2022 No 10/19/2022 No 10/19/2022 Digital Access Answer Date Recorded No 10/19/2022 No 10/19/2022 Reliable internet access at home? Not on file 10/19/2022 Device with a working camera? Not on file Comments Unknown Sex and Gender Information Value Date Recorded Sex Assigned at Female 08/10/2022 10:36 AM EDT Legal Sex Female 10:34 AM EDT Gender Identity Female 08/10/2022 10:36 AM EDT Sexual Orientation Straight 08/10/2022 10 :36 AM EDT Plan of Treatment Health Maintenance Due Date Last Done Comments LIPID PANEL 1953 DEPRESSION SCREENING 1965 SMOKING Hx and SMOKELESS TOBACCO SCREENING 1966 HEPATITIS C SCREENING 07/22/1971 MAMMOGRAM 1993 COLOGUARD 1998 COLONOSCOPY 1998 COLORECTAL CANCER SCREENING 1998 FIT TEST 1998 FOBT 1998 SIGMOIDOSCOPY 1998 VIRTUAL COLONOSCOPY 1998 PNEUMOCOCCAL VACCINES (50+ years) (1 of 1 - PCV) 07/22/2003 OSTEOPOROSIS SCREENING INITIAL (ONE-TIME) 2018 INFLUENZA VACCINE (#1) 2024 , 12/22/2020, 12/18/2019, Additional history exists COVID-19 VACCINE ( season) 2024 03/10/2022, 06/30/2021, 12/22/2020, Additional history exists RSV VACCINE (1 - 1-dose 75+ series) 2028 Adult Td,Tdap Booster 09/28/2032 09/28/2022, 013 ZOSTER VACCINES Completed 11/01/2018, 07/26/2018 HEPATITIS A VACCINES Aged Out No long er eligible based on patient's age to complete this topic HIB VACCINES Aged Out No longer eligi ble based on patient's age to complete this topic MENINGOCOCCAL VACCINES (ACWY) Aged Out No longer eligible based on patient's age to complete this topic MENINGOCOCCAL VACCINES (B) Aged Out N o longer eligible based on patient's age to complete this topic Medical Devices Not on file Insurance MEDICARE PART A & [facility] SUPPLE[facility] MED[facility] PART [facility] & [facility] [place] [facility] EXTENSION MEDICARE SUPPLEMENT MEDICARE PART A & B [employer] MEDICARE SUPPLEMENT MEDICARE PART A & B [employer] MEDICARE SUPPLEMENT MEDICARE PART A & B [facility] MEDICARE SUPPLEMENT MEDICARE PART A & B [address] [facility] EXTENSION MEDICARE SUPPLEMENT Care Teams [place] Relationship Specialty Start Date End Date Saray Oreilly MD [address] [facility] [place] [address] PCP - General Internal Medicine 08/10/22 Additional Source Comments The information contained in this document represents components of the legal health record. It is not the complete legal health record.[facility]
--- OUTSIDE RECORDS SUMMARY | 2024-12-11 07:40 | XMS_ITS | Patient Health Record ---
Author Organization [facility] Address [address] [place] [address] Care Team Providers Care Detention Deputy Name Role Phone -Do Not use, PCP Primary Care Provider Unavailab le Reason For Referral No Information Medications Medication SIG (Take, Route, Frequency, Duration) Notes Start Date End Date Status Fluticasone Propionate 50 MCG/ACT 1 spray in each nostril Nasally Once a day; Duration: 30 day(s) 05/05/2019 Active Metoprolol Tartrate 25 MG Oral; Duration: 90 Active Irbesartan 150 MG Oral; Duration: 90 Active Plan Of Treatment No Information Insurance Providers Payer Name Payer Address Payer Phone Subscriber Number Group Number Insured Name Patient Relationship to Insured Coverage Start Date Coverage End Date [employer] of [place] [facility] [address] [place] [phone] [id number] Vale Truong Self - patient is the insured 9 [facility] [address] [place] [phone] [id number] Vale Truong Self - patient is the insured 0 Medical (General) History Medical History History ICD Code Hypertension I10 Surgical History Surgery Date(Month/Year) Hemorrhoids repair 2011 Hospitalization History Reason Date(Month/Year)
--- OUTSIDE RECORDS SUMMARY | 2024-12-11 07:40 | XMS_ITS | Patient Health Record ---
Author Organization [facility] Address [address] [place] [address] Care Team Providers Care Station Installation Supervisor Name Role Phone Saray Oreilly MD Primary Care Provider Abdirahman Mcconnell Unavailable [phone] Reason For Referral No Information Medications Medication SIG (Take, Route, Frequency, Duration) Notes Start Date End Date Status Diovan 160mg 03/22/2024 03/22/2024 Activ e Metoprolol & Diet Manage Prod 25mg Active Aspirin Childrens 81 MG 1 tablet Orally Once a day 03/22/2024 03/22/2024 Active Problems Problem Type SNOMED Code ICD Code Onset Dates Problem Status W/U Status Risk Notes Problem Epigastric pain (70803138) Abdominal pain, epigastric (789.06) Active confirmed Problem Hemorrhoids (41201532) Hemorrhoids (455.6) Active confirmed Plan Of Treatment No Information Insurance Providers Payer Name Payer Address Payer Phone Subscriber Number Group Number Insured Name Patient Relationship to Insured Coverage Start Date Coverage End Date [facility] [address] [place] [phone] [id number] AFR[place] VEE Self - patient is the insured Medical (General) History Medical History History ICD Code colonoscopy 10-09-2008--neg except int/ex t hemorrhoids and diverticulosis EGD and colonoscopy 04-23-2003 -EGD with a small HH but otherwise negative, and colon was negative for polyps Denies MD,DM,CVA,Lung disease,renal dise ase HTN Liver cysts seen on U/S and CT scan in and 2003-no gallstones
[2024-12-11 10:39] LABS: Hemoglobin A1C 139.0482 umol/L; Total Hemoglobin (HGBA1C) 3489.6646 umol/L
[2024-12-11 10:58] LABS: Alanine Aminotransferase 25 U/L (0-31); Albumin Level 4.4 g/dL (3.5-5.0); Alkaline Phosphatase 74 U/L (39-117); Anion Gap 11 (12-20); Aspartate Amino Transferase 34 U/L (5-31); Blood Urea Nitrogen 9 mg/dL (9-16); Calcium 9.4 mg/dL (8.4-10.2); Carbon Dioxide 29 mmol/L (22-29); Chloride 105 mmol/L (96-108); Cholesterol 195 mg/dL (<200); Estimated Glomerular Filt Rate > 60; HDL Cholesterol 67 mg/dL (>40); Potassium 4.2 mmol/L (3.3-5.1); Sodium 141 mmol/L (135-145); Total Protein 6.9 g/dL (6.5-8.0); Triglycerides 99 mg/dL (<150)
== END 2024-12-11 07:39 | disposition home or self-care (01) ==
LOC: HO.HMGCLDS 07:38
PROVIDERS: PCP Internal Medicine; Visit Provider Internal Medicine
DX: Z13.1 Encounter for screening for diabetes mellitus (principal); I10 Essential (primary) hypertension; E78.5 Hyperlipidemia, unspecified
CPT/HCPCS: 36415; 80053; 80061; 83036

== ENCOUNTER 2024-12-26 08:46 | Outpatient (AMB) | payer MEDICARE, OTHER, SELFPAY ==
[2024-12-26 08:48] VITALS: BP 128/78; PULSE 71; RESP 18; TEMP 36.8; O2SAT 96; BMI 29.1
--- NOTE | 2024-12-26 08:48 | A.OFFPC_ITS ---
Vital Signs 12/26/24 08:48 Height 5 ft 2 in Weight 159 lb BMI 29.1 BP 128/78 Blood Pressure Location Lt brachial Position Sitting Respiration 18 Pulse 71 Pulse Source Pulse Oximeter Temp 98.2 F Temp Source Oral Pulse Oximetry (%) 96 Oxygen Delivery Method Room Air Intake Visit Reasons: 3m folow up Intake Note: Pt is here today for 3 months follow up visit. Allergies No Known Allergies Allergy (Verified 12/26/24 08:50) Medication List - Last Reconciled 12/26/24 by Saray Oreilly MD cholecalciferol (vitamin D3) 50 mcg PO DAILY estradiol 0.01%(0.1mg/gram) 1 g vaginal 3XW irbesartan 150 mg PO DAILY irbesartan 75 mg PO DAILY metoprolol succinate ER 25 mg PO BID pravastatin 20 mg PO DAILY Tobacco use date assessed: 12/26/24 Fall risk assessment: No Falls in past year Last assessed Fall Risk: 12/26/24 Dental Screening Dental Screen Date: 07/18/24 HPI 3m folow up HPI Details Pt presents for f/u HTN, hyperlipid, stable on meds. PFSH Medical History GERD (gastroesophageal reflux disease) Tubular adenoma Annual physical exam Normal breast exam Hyperlipidemia Hemorrhoids HTN (hypertension) Surgical History History of esophagogastroduodenoscopy (EGD) Hx of hemorrhoidectomy Family History Father Hypertension Mother Hypertension Social History Household Members: Spouse Housing: House Alcohol intake: current Alcohol intake frequency: holidays/special occasions only Alcohol type: wine Patient Tobacco Use Status: Former Tobacco user e-Cigarette/Vaping Use: Never Used Advance Directives Date on File: 03/04/20 service: No Current occupational status: retired 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 1. Little interest or pleasure in doing things: not at all 2. Feeling down, depressed, or hopeless: not at all 3. Trouble falling or staying asleep, or sleeping too much: not at all 4. Feeling tired or having little energy: not at all 5. Poor appetite or overeating: not at all 6. Feeling bad about yourself - or that you are a failure or have let yourself or your family down: not at all 7. Trouble concentrating on things, such as reading the newspaper or watching television: not at all 8. Moving or speaking so slowly that other people could have noticed. Or the opposite - being so fidgety or restless that you have been moving around a lot more than usual: not at all 9. Thoughts that you would be better off or of hurting yourself in some way: not at all Total score: 0 Depression Screening Interpretation: Negative Depression Screening Done: Yes Source: Developed by Drs. Abdirahman Domingo, Carol Ann Kidd, Geraldo Tipton and colleagues, with an educational kristi from [employer]. Thrive Questionnaire Date Thrive assessed: 07/13/24 I am a: Patient What is your living situation today?: I have a steady place to live Within the past 12 months, did the food you bought not last and you didn't have the money to get more?: Never true Within the past 12 months, did you worry whether your food would run out before you got money to buy more?: Never true Do you have trouble paying for medicines?: No Do you have trouble getting transportation to medical appointments?: No Do you have trouble paying your heating and electricity bill?: No Do you have trouble taking care of your child, family member or friend?: No Do you have trouble with day-to-day activities such as bathing, preparing meals, shopping, managing finances, etc.?: No Are you currently unemployed and looking for a job?: No Are you interested in more education?: No Please select the resources that you would like help with: None Currently or been in a relationship where the following occur: No concerns reported THRIVE Score: 0 JOSÉ LUIS-7 AMB Questionnaire JOSÉ LUIS-7 Date JOSÉ LUIS - 7 assessed: 07/18/24 Feeling nervous, anxious, or on edge: 0 = Not at all Not being able to stop or control worryin = Not at all Worrying too much about different things: 0 = Not at all Trouble relaxin = Not at all Being so restless that it is hard to sit still: 0 = Not at all Becoming easily annoyed or irritable: 0 = Not at all Feeling afraid as if something awful might happen: 0 = Not at all Total JOSÉ LUIS-7 score (0-4 normal; 5-9 mild; 10-14 moderate; 15-21 severe): 0 Source: Developed by Drs. Abdirahman Domingo, Carol Ann Kidd, Geraldo Tipton and colleagues, with an educational kristi from [employer]. Review of Systems Const All systems reviewed & are unremarkable except as noted in HPI and below Eyes Reports no additional complaints ENT Reports no additional complaints Card Reports no additional complaints Resp Reports no additional complaints GI Reports no additional complaints Reports no additional complaints Physical exam (Primary Care) Vital Signs: Last Vital Signs Temp 98.2 F 12/26/24 08:48 Pulse 71 12/26/24 08:48 Resp 18 12/26/24 08:48 BP 128/78 12/26/24 08:48 Pulse Ox 96 12/26/24 08:48 Oxygen Delivery Method Room Air 12/26/24 08:48 BMI result Body Mass Index 29.1 Tobacco/Smoking Status: Tobacco use Status Tobacco use date assessed 12/26/24 12/26/24 08:54 Patient Tobacco Use Status Former Tobacco user 12/26/24 08:54 e-Cigarette/Vaping Use Never Used 12/26/24 08:54 PHQ-9: PHQ-9 Score PHQ-9: Total score 0 12/26/24 08:54 Depression Screening Interpretation: Negative Thrive Assessment: Date of Thrive Assessment Date Thrive assessed 07/13/24 12/26/24 08:54 Currently or been in a relationship where the following occur: No concerns reported Const General: no acute distress HENMT Head: Yes normal to inspection Ears: hearing grossly normal bilaterally Face and sinus: Yes normal facial exam Mouth: Normal oral and palatal mucosa present Eyes General: appearance normal, both eyes and all related structures Neck Neck: Yes no lymphadenopathy and Yes supple Resp Effort & Inspection: normal respiratory effort Auscultation: clear to auscultation bilaterally Cardio Rhythm: regular rhythm Heart sounds: S1 normal heart sound present and S2 normal heart sound present GI Inspection: Yes normal to inspection Palpation (GI): Soft to palpation Percussion: Yes normal to percussion Auscultation: normal bowel sounds Coding Level of Care Code Est Pt Level 4 (33558) Diagnoses Tubular adenoma D36.9 HTN (hypertension) I10 Hyperlipidemia E78.5 Hyperglycemia R73.9 Assessment & Plan Assessment & Plan (1) Tubular adenoma: Comment: PAULETTE 02/2020,Dr. Ordonez, repeat in 5 yrs Code(s): D36.9 - Benign neoplasm, unspecified site Category: Medical Plan: Patient is due for repeat colonoscopy in February. she will be referred to GI (2) HTN (hypertension): Code(s): I10 - Essential (primary) hypertension Category: Medical Plan: Continue current medication (3) Hyperlipidemia: Code(s): E78.5 - Hyperlipidemia, unspecified Category: Medical Plan: Continue current medication (4) Hyperglycemia: Code(s): R73.9 - Hyperglycemia, unspecified Category: Medical Plan: A1c is 5.8, ADA diet regular exercise discussed with the patient, she will return in 7 months with a fasting labs before Orders: Orders Comprehensive [place]. Panel Fast 7 Months E78.5 - Hyperlipidemia, unspecified, I10 - Essential (primary) hypertension, R73.9 - Hyperglycemia, unspecified Hemoglobin A1c 7 Months E78.5 - Hyperlipidemia, unspecified, I10 - Essential (primary) hypertension, R73.9 - Hyperglycemia, unspecified Microalbumin, Random (w Creat) 7 Months E78.5 - Hyperlipidemia, unspecified, I10 - Essential (primary) hypertension, R73.9 - Hyperglycemia, unspecified Vitamin D 25-OH Total 7 Months E78.5 - Hyperlipidemia, unspecified, I10 - Essential (primary) hypertension, R73.9 - Hyperglycemia, unspecified Complete Blood Count Auto Diff 7 Months E78.5 - Hyperlipidemia, unspecified, I10 - Essential (primary) hypertension, R73.9 - Hyperglycemia, unspecified Lipid Panel 7 Months E78.5 - Hyperlipidemia, unspecified, I10 - Essential (primary) hypertension, R73.9 - Hyperglycemia, unspecified Referrals Gastroenterology Referral D36.9 - Benign neoplasm, unspecified site, E78.5 - Hyperlipidemia, unspecified, I10 - Essential (primary) hypertension, K21.9 - Ga stro-esophageal reflux disease without esophagitis
--- OUTSIDE RECORDS SUMMARY | 2024-12-26 09:31 | XMS_ITS | Patient Health Record ---
Author Organization [facility] Address [address] [place] [address] Care Team Providers Care Waiter/Waitress Take Out Name Role Phone Saray Oreilly MD Primary Care Provider Abdirahman Mcconnell Unavailable [phone] Reason For Referral No Information Medications Medication SIG (Take, Route, Frequency, Duration) Notes Start Date End Date Status Diovan 160mg 03/22/2024 03/22/2024 Activ e Metoprolol & Diet Manage Prod 25mg Active Aspirin Childrens 81 MG 1 tablet Orally Once a day 03/22/2024 03/22/2024 Active Problems Problem Type SNOMED Code ICD Code Onset Dates Problem Status W/U Status Risk Notes Problem Epigastric pain (17914396) Abdominal pain, epigastric (789.06) Active confirmed Problem Hemorrhoids (89883753) Hemorrhoids (455.6) Active confirmed Plan Of Treatment No Information Insurance Providers Payer Name Payer Address Payer Phone Subscriber Number Group Number Insured Name Patient Relationship to Insured Coverage Start Date Coverage End Date [facility] [address] [place] [phone] [id number] [place] VEE Self - patient is the insured Medical (General) History Medical History History ICD Code colonoscopy 10-09-2008--neg except int/ex t hemorrhoids and diverticulosis EGD and colonoscopy 04-23-2003 -EGD with a small HH but otherwise negative, and colon was negative for polyps Denies [place],DM,CVA,Lung disease,renal dise ase HTN Liver cysts seen on U/S and CT scan in and 2003-no gallstones
--- OUTSIDE RECORDS SUMMARY | 2024-12-26 09:32 | XMS_ITS | Clinical Summary ---
Author Organization [facility] Address [address] [place] [address] Phone Care Team Providers Care Foam Rubber Curer Name Role Phone Saray Oreilly MD Primary Care Provider [phone] Medications atovaquone-prog uanil (MALARONE) 250-100 mg Tab [...] file Insurance [facility]TENSION MEDICARE SUPPLEMENT [facility] PART A & [facility] EXTENSION MEDICARE SUPPLEMENT MEDICARE PART A & B [employer] MEDICARE SUPPLEMENT MEDICARE PART A & B [employer] MEDICARE SUPPLEMENT MEDICARE PART A & B [facility] MEDICARE SUPPLEMENT MEDICARE PART A & B [employer] [facility] EXTENSION MEDICARE SUPPLEMENT Care Teams Foam Rubber Curer Relationship Specialty Start Date End Date Saray Oreilly MD [address] [place] [address] PCP - General Internal Medicine 08/10/22 Additional Source Comments The information contained in this document represents components of the legal health record. It is not the complete legal health record.[facility]
--- OUTSIDE RECORDS SUMMARY | 2024-12-26 09:32 | XMS_ITS | Patient Health Record ---
Author Organization [facility] Address [address] [place] [address] Care Team Providers Care Director Manufacturing Engineering Name Role Phone -Do Not use, PCP [...] [facility] [address] [place] [phone] [id number] Vale Truong Self - patient is the insured 9 [facility] [address] [place] [phone] [id number] Vale Truong Self - patient is the insured 0 Medical (General) History Medical History History ICD Code Hypertension I10 Surgical History Surgery Date(Month/Year) Hemorrhoids repair 2011 Hospitalization History Reason Date(Month/Year)
== END 2024-12-26 10:49 | disposition home or self-care (01) ==
LOC: HO.HMCC 08:47
PROVIDERS: PCP Internal Medicine; Visit Provider Internal Medicine
DX: D36.9 Benign neoplasm, unspecified site (principal); I10 Essential (primary) hypertension; E78.5 Hyperlipidemia, unspecified; R73.9 Hyperglycemia, unspecified

== ENCOUNTER → 2024-12-26 08:46 | Outpatient (BNVA) | payer MEDICARE, OTHER, SELFPAY | PROVIDERS: PCP Internal Medicine; Visit Provider Internal Medicine | DX: I10 Essential (primary) hypertension (principal); E78.5 Hyperlipidemia, unspecified; R73.9 Hyperglycemia, unspecified; K21.9 Gastro-esophageal reflux disease without esophagitis; Z79.899 Other long term (current) drug therapy | CPT/HCPCS: 96127; 99212 ==

== ENCOUNTER 2025-03-06 09:57 | Outpatient (AMB) | payer MEDICARE, OTHER, SELFPAY ==
--- NOTE | 2025-03-06 10:45 | MHC.PC.OV ---
Vital Signs 03/06/25 10:46 Height 5 ft 2 in Weight 160 lb BMI 29.3 BP 134/80 Blood Pressure Location Rt brachial Position Sitting Respiration 17 Pulse 82 Pulse Source Pulse Oximeter Temp 98.1 F Temp Source Oral Pulse Oximetry (%) 98 Oxygen Delivery Method Room Air Intake Visit Reasons: Pre op cataract surgery Dr. Madsen 03/12/25 Intake Note: Pt is here today for a pre op visit. Pt is having cataract surgery on 03/12/[address] Madsen. Allergies No Known Allergies Allergy (Verified 03/06/25 10:49) Tobacco use date assessed: 03/06/25 Fall risk assessment: No Falls in past year Last assessed Fall Risk: 03/06/25 Dental Screening Dental Screen Date: 07/18/24 HPI Pre op cataract surgery Dr. Madsen 03/12/25 HPI Details Hypertension hyperlipidemia are controlled on current medications. Pt presents for pre op for cataract surgery. [facility] Medical History GERD (gastroesophageal reflux disease) Tubular adenoma Annual physical exam Normal breast exam Hyperlipidemia Hemorrhoids HTN (hypertension) Surgical History History of esophagogastroduodenoscopy (EGD) Hx of hemorrhoidectomy Family History Father Hypertension Mother Hypertension Social History Household Members: Spouse Housing: House Alcohol intake: current Alcohol intake frequency: holidays/special occasions only Alcohol type: wine Patient Tobacco Use Status: Former Tobacco user e-Cigarette/Vaping Use: Never Used Advance Directives Date on File: 03/04/20 service: No Current occupational status: retired Current occupation: [employer] Cognitive needs: No Hearing needs: No Vision needs: Yes Questionnaire Thrive Questionnaire Date Thrive assessed: 07/13/24 I am a: Patient What is your living situation today?: I have a steady place to live Within the past 12 months, did the food you bought not last and you didn't have the money to get more?: Never true Within the past 12 months, did you worry whether your food would run out before you got money to buy more?: Never true Do you have trouble paying for medicines?: No Do you have trouble getting transportation to medical appointments?: No Do you have trouble paying your heating and electricity bill?: No Do you have trouble taking care of your child, family member or friend?: No Do you have trouble with day-to-day activities such as bathing, preparing meals, shopping, managing finances, etc.?: No Are you currently unemployed and looking for a job?: No Are you interested in more education?: No Please select the resources that you would like help with: None Currently or been in a relationship where the following occur: No concerns reported THRIVE Score: 0 JOSÉ LUIS-7 AMB Questionnaire JOSÉ LUIS-7 Date JOSÉ LUIS - 7 assessed: 07/18/24 Source: Developed by Drs. Abdirahman Domingo, Carol Ann Kidd, Geraldo Tipton and colleagues, with an educational kristi from [employer]. Review of Systems Const All systems reviewed & are unremarkable except as noted in HPI and below Eyes Reports no additional complaints ENT Reports no additional complaints Card Reports no additional complaints Resp Reports no additional complaints GI Reports no additional complaints Reports no additional complaints Physical exam (Primary Care) Vital Signs: Last Vital Signs Temp 98.1 F 03/06/25 10:46 Pulse 82 03/06/25 10:46 Resp 17 03/06/25 10:46 BP 134/80 03/06/25 10:46 Pulse Ox 98 03/06/25 10:46 Oxygen Delivery Method Room Air 03/06/25 10:46 BMI result Body Mass Index 29.3 Tobacco/Smoking Status: Tobacco use Status Tobacco use date assessed 03/06/25 03/06/25 10:51 Patient Tobacco Use Status Former Tobacco user 03/06/25 10:51 e-Cigarette/Vaping Use Never Used 03/06/25 10:51 Thrive Assessment: Date of Thrive Assessment Date Thrive assessed 07/13/24 03/06/25 10:51 Currently or been in a relationship where the following occur: No concerns reported Const General: no acute distress HENMT Head: Yes normal to inspection General nose exam: Normal external nose present Mouth: Normal oral and palatal mucosa present Throat: Yes posterior oropharynx normal Eyes General: appearance normal, both eyes and all related structures Neck Neck: Yes no lymphadenopathy and Yes supple Resp Effort & Inspection: normal respiratory effort Auscultation: clear to auscultation bilaterally Cardio Rhythm: regular rhythm Heart sounds: S1 normal heart sound present and S2 normal heart sound present GI Inspection: Yes normal to inspection Palpation (GI): Soft to palpation Percussion: Yes normal to percussion Auscultation: normal bowel sounds Coding Level of Care Code Est Pt Level 4 (12962) Diagnoses HTN (hypertension) I10 Hyperlipidemia E78.5 Cataract H26.9 Assessment & Plan Assessment & Plan (1) HTN (hypertension): Code(s): I10 - Essential (primary) hypertension Category: Medical Plan: cont meds (2) Hyperlipidemia: Code(s): E78.5 - Hyperlipidemia, unspecified Category: Medical Plan: cont statin (3) Cataract: Code(s): H26.9 - Unspecified cataract Category: Medical Plan: pt is medically cleared for cataract surgery
[2025-03-06 10:46] VITALS: BP 134/80; PULSE 82; RESP 17; TEMP 36.7; O2SAT 98; BMI 29.3
--- OUTSIDE RECORDS SUMMARY | 2025-03-06 12:07 | XMS_ITS | Patient Health Record ---
Author Organization [facility] Address [address] [place] [address] Care Team Providers Care Cuprous Chloride Helper Name Role Phone Saray Oreilly MD Primary Care Provider Abdirahman Mcconnell Unavailable [phone] Reason For Referral No Information Medications Medication SIG (Take, Route, Frequency, Duration) Notes Start Date End Date Status Diovan 160mg Activ e Metoprolol & Diet Manage Prod 25mg Active Aspirin Childrens 81 MG Tablet Chewable 1 tablet Orally Once a day Active Social History Social History Additional Details Category Social Info Options Details Miscellaneous: Marital status: 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 wine Problems Problem Type SNOMED Code ICD Code Onset Dates Problem Status W/U Status Risk Notes Problem Epigastric pain (56937694) Abdominal pain, epigastric (789.06) Active confirmed Problem Hemorrhoids (82940379) Hemorrhoids (455.6) Active confirmed Plan Of Treatment No Information Insurance Providers Payer Name Payer Address Payer Phone Subscriber Number Group Number Insured Name Patient Relationship to Insured Coverage Start Date Coverage End Date [facility] [address] [facility] [place] [phone] [id number] [place] VEE Self - patient is the insured Medical (General) History Medical History History ICD Code colonoscopy 10-09-2008--neg except int/ex t hemorrhoids and diverticulosis EGD and colonoscopy 04-23-2003 -EGD with a small HH but otherwise negative, and colon was negative for polyps Denies [place],DM,CVA,Lung disease,renal dise ase HTN Liver cysts seen on U/S and CT scan in 2 and 2003-no gallstones
--- OUTSIDE RECORDS SUMMARY | 2025-03-06 12:07 | XMS_ITS | Clinical Summary ---
Author Organization [facility] Address [address] [place] [address] Phone Care Team Providers Care Telemarketing Agent Name Role Phone Saray Oreilly MD Primary Care Provider [phone] Medications atovaquone-prog uanil (MALARONE) 250-100 mg Tab [...] file Insurance [facility]ICARE PART A & [facility] EXTENSION MEDICARE SUPPLEMENT MEDICARE PART A & B [facility] Solutions [facility] EXTENSION MEDICARE SUPPLEMENT MEDICARE PART A & B [employer] MEDICARE SUPPLEMENT MEDICARE PART A & B [employer] MEDICARE SUPPLEMENT MEDICARE PART A & B [facility] MEDICARE SUPPLEMENT MEDICARE PART A & B [employer] [facility] EXTENSION MEDICARE SUPPLEMENT Care Teams Telemarketing Agent Relationship Specialty Start Date End Date Saray Oreilly MD [address] [place] [phone] PCP - General Internal Medicine 08/10/22 Additional Source Comments The information contained in this document represents components of the legal health record. It is not the complete legal health record.[facility]
--- OUTSIDE RECORDS SUMMARY | 2025-03-06 12:07 | XMS_ITS | Patient Health Record ---
Author Organization [facility] Address [address] [place] [address] Care Team Providers Care Fuel Cell Test Engineer Name Role Phone -Do Not use, PCP [...] [facility] [address] [place] [phone] [id number] Vale Truong Self - patient is the insured 9 [facility] [address] [place] [phone] [id number] Vale Truong Self - patient is the insured 0 Medical (General) History Medical History History ICD Code Hypertension I10 Surgical History Surgery Date(Month/Year) Hemorrhoids repair 2011 Hospitalization History Reason Date(Month/Year)
== END 2025-03-06 16:23 | disposition home or self-care (01) ==
LOC: HO.HMCC 09:58
PROVIDERS: PCP Internal Medicine; Visit Provider Internal Medicine
DX: I10 Essential (primary) hypertension (principal); E78.5 Hyperlipidemia, unspecified; H26.9 Unspecified cataract

== ENCOUNTER → 2025-03-06 09:57 | Outpatient (BNVA) | payer MEDICARE, OTHER, SELFPAY | PROVIDERS: PCP Internal Medicine; Visit Provider Internal Medicine | DX: Z01.818 Encounter for other preprocedural examination (principal); I10 Essential (primary) hypertension; E78.5 Hyperlipidemia, unspecified; H26.9 Unspecified cataract; Z79.899 Other long term (current) drug therapy | CPT/HCPCS: 99212 ==